=== PATIENT | male | born 1985 | race Caucasian/White ===

== ENCOUNTER 2016-11-04 15:44 | Inpatient (IN) | payer OTHER ==
[2016-11-04 17:20] VITALS: BMI 24.0
--- NOTE | 2016-11-04 18:48 | HP ---
Admission [facility] - [facility] Chief Complaint: i want to go to rehab Allergies/Adverse Reactions: Allergies Allergy/AdvReac Type Severity Reaction Status Date / Time Penicillins Allergy Severe Hives Verified 11/04/16 17:30 History of Present Illness: 30 years old male with long history of cocaine nicotine dependence, heart murmur , athma and depression is admitted to rehab cardiology [phone] Exam Limitations: No Limitations - Ebola screening Have you traveled outside of the country in the last 21 days: No Have you had contact with anyone from an Ebola affected area: No Have you been sick,other than usual withdrawal symptoms: No Do you have a fever: No - Review of Systems Constitutional: Weight Stable EENT: reports: Dental Problems (upper teeth missing) Respiratory: reports: No Symptoms reported Cardiac: reports: No Symptoms Reported GI: reports: No Symptoms Reported : reports: No Symptoms Reported Musculoskeletal: reports: No Symptoms Reported Integumentary: reports: No Symptoms Reported Neuro: reports: No Symptoms reported Endocrine: reports: No Symptoms Reported Hematology: reports: No Symptoms Reported Psychiatric: reports: Judgement Intact, Orientated x3, Depressed Other Systems: Reviewed and Negative Patient History - Patient Medical History Hx Anemia: No Hx Asthma: Yes Hx Chronic Obstructive Pulmonary Disease (COPD): No Hx Cancer: No Hx Cardiac Disorders: No Hx Congestive Heart Failure: No Hx Hypertension: No Hx Hypercholesterolemia: No Hx Pacemaker: No HX Cerebrovascular Accident: No Hx Seizures: No Hx Dementia: No Hx Diabetes: No Hx Gastrointestinal Disorders: No Hx Liver Disease: No Hx Genitourinary Disorders: No Hx Sexually Transmitted Disorders: No Hx Thyroid Disease: No Hx Human Immunodeficiency Virus (HIV): No Hx Hepatitis C: No Hx Depression: Yes Hx Suicide Attempt: No Hx Bipolar Disorder: No Hx Schizophrenia: No - Patient Surgical History Past Surgical History: No - PPD History Previous Implant?: Yes Documented Results: Negative w/o proof Implanted On Prior [facility] Admission?: No PPD to be Administered?: Yes - Smoking Cessation Smoking history: Current every day smoker Have you smoked in the past 12 months: Yes Aproximately how many cigarettes per day: 20 Cigars Per Day: 0 Hx Chewing Tobacco Use: No Initiated information on smoking cessation: Yes 'Breaking Loose' booklet given: 11/04/16 - Substance & Tx. History Hx Alcohol Use: No Hx Substance Use: Yes Substance Use Type: Cocaine Hx Substance Use Treatment: Yes (2014 [facility]) - Substances Abused Cocaine Route: Inhalation Frequency: Daily Amount used: 2-3 grams Age of first use: 19 Date of Last Use: 11/01/16 Family Disease History - Family Disease History Family Disease History: Heart Disease: Mother (), Other: Mother Admission Physical Exam [facility] - Vital Signs Vital Signs: Vital Signs - 24 hr 11/04/16 17:15 Temperature 96.9 F L Pulse Rate 75 Respiratory 18 Rate Blood Pressure 100/60 - Physical General Appearance: Yes: No Apparent Distress, Appropriately Dressed, Thin HEENTM: Yes: Hearing grossly Normal, Normal ENT Inspection, Normocephalic, Normal Voice Respiratory: Yes: Chest Non-Tender, Lungs Clear, Normal Breath Sounds, No Respiratory Distress, No Accessory Muscle Use Neck: Yes: Supple, Trachea in good position Breast: Yes: Breasts Symetrical Cardiology: Yes: Regular Rhythm, Regular Rate, S1, S2, Murmur Abdominal: Yes: Normal Bowel Sounds, Non Tender, Soft Genitourinary: Yes: Within Normal Limits Extremities: Yes: Normal Inspection, Normal Range of Motion, Non-Tender Neurological: Yes: Fully Oriented, Alert, Motor Strength 5/5, Normal Response, Depressed Affect Integumentary: Yes: Warm Lymphatic: Yes: Within Normal Limits - Diagnostic (1) Cocaine dependence, uncomplicated Current Visit: Yes Status: Acute (2) Nicotine dependence Current Visit: Yes Status: Acute Qualifiers: Nicotine product type: cigarettes Substance use status: in withdrawal Qualified Code(s): F17.213 - Nicotine dependence, cigarettes, with withdrawal (3) Asthma Current Visit: Yes Status: Chronic Qualifiers: Asthma severity: mild intermittent Asthma complication type: with status asthmaticus Qualified Code(s): J45.22 - Mild intermittent asthma with status asthmaticus (4) Murmur, cardiac Current Visit: Yes Status: Chronic (5) Depression (emotion) Current Visit: Yes Status: Suspected Qualifiers: Depression Type: dysthymia Qualified Code(s): F34.1 - Dysthymic disorder Cleared for Admission [facility] - Detox or Rehab [facility] Level of Care: Observation Bed Detox Regimen/Protocol: Not Applicable Claeared for Rehab Admission: Yes [facility] Breath Alcohol Content Breath Alcohol Content: 0 Urine Drug Screen - Results Drug Screen Negative: No Urine Drug Screen Results: KENYETTA-Cocaine, MTD-Methadone
[2016-11-04] MEDS ORDERED: MAG HYDROX/AL HYDROX/SIMETH 30 ML UNIT-DOSE CUP PO PRN (18:53)
[2016-11-04] MEDS ORDERED: MAGNESIUM CITRATE 300 ML BOTTLE PO PRN (18:53)
[2016-11-04] MEDS ORDERED: IBUPROFEN 400 MG TABLET (FP) PO PRN (18:53)
[2016-11-04] MEDS ORDERED: diphenhydrAMINE HCL 50 MG CAPSULE PO PRN (18:53)
[2016-11-04] MEDS ORDERED: LOPERAMIDE HCL 2 MG CAPSULE PO PRN (18:53)
[2016-11-04] MEDS ORDERED: P-EPHED 60MG/TRIPROLIDI 2.5MG TABLET PO PRN (18:53)
[2016-11-04] MEDS ORDERED: MENTHOL/PHENOL 1 EACH UD MM PRN (18:53)
[2016-11-04] MEDS ORDERED: MAGNESIUM HYDROX 2400MG/30ML ORAL SUSPENSION 30 ML CUP PO PRN (18:53)
[2016-11-04] MEDS ORDERED: ACETAMINOPHEN 325 MG TABLET (FP) PO PRN (18:53)
[2016-11-04] MEDS ORDERED: guaiFENesin/D-METHORPHAN HB 10 ML UNIT-DOSE CUPS PO PRN (18:53)
[2016-11-04] MEDS ORDERED: ALBUTEROL SO4 6.7 GM HFA INHALER IH PRN (18:56)
[2016-11-04] MEDS ORDERED: METHADONE HCL 40 MG DISPERSABLE TABLET PO SCH (19:00)
[2016-11-04] MEDS ORDERED: TUBERCULIN PPD 5 TU/0.1ML VIAL ID ONE ×2 (22:45→22:57)
[2016-11-04] MEDS: THIAMINE HCL 100 MG TABLET (FP) PO SCH (23:04)
[2016-11-05 00:38] LABS: URINE APPEARANCE CLEAR; URINE BILIRUBIN NEGATIVE (NEGATIVE); URINE BLOOD NEGATIVE (NEGATIVE); URINE COLOR YELLOW; URINE GLUCOSE (UA) NEGATIVE (NEGATIVE); URINE KETONE NEGATIVE (NEGATIVE); URINE LEUK ESTERASE TRACE (NEGATIVE); URINE NITRITE NEGATIVE (NEGATIVE); URINE PROTEIN NEGATIVE (NEGATIVE); URINE UROBILINOGEN NEGATIVE mg/dL (0.2-1.0)
[2016-11-05 01:00] LABS: URINE MUCUS RARE; URINE WBC <1 /hpf (3-5)
[2016-11-05] MEDS ORDERED: METHADONE HCL 10 MG TABLET ONE (04:07)
[2016-11-05] MEDS ORDERED: METHADONE HCL 40 MG DISPERSABLE TABLET ONE (04:08)
[2016-11-05] MEDS: METHADONE 120 MG, METHADONE 10 MG PO SCH (06:20)
--- NOTE | 2016-11-05 09:18 | EKG ---
Test Reason : Blood Pressure : / mmHG Vent. Rate : 065 BPM Atrial Rate : 065 BPM P-R Int : 130 ms QRS Dur : 102 ms QT Int : 400 ms P-R-T Axes : 018 066 045 degrees QTc Int : 416 ms NORMAL SINUS RHYTHM NON-SPECIFIC INTRA-VENTRICULAR CONDUCTION DELAY NO PREVIOUS ECGS AVAILABLE Confirmed by AUDREY PEDERSON MD ([id number]) on 11/05/2016 9:18:08 AM Referred By: Confirmed By:AUDREY PEDERSON MD
[2016-11-05] MEDS: PRENATAL VITAMINS W/ FOLIC ACID TABLET (FP) PO SCH (09:56)
[2016-11-05] MEDS: NICOTINE POLACRILEX 4 MG GUM BC PRN ×2 (09:58→13:18)
[2016-11-05] MEDS: NICOTINE 21 MG/24 HOURS TOPICAL PATCH TD SCH (09:58)
--- NOTE | 2016-11-05 10:15 | HP ---
Psychiatrist Admission - Data Date of interview: 11/05/16 Admission source: [facility] Identifying data: This is the first 5N inpatient rehabilitation admission for this 30 year old single father of 3 (10,9,8), he is unemployed and domiciled , residing in [facility] with his aunt. Medical History: medical h/o heart murmur, on MMTP 130 mg/daily. Smokes cigarettes 1/2 PPD. Psychiatric History: Patient reports history of depression, first psychiatric hospitalization in 2014 at [facility] for 2 weeks, states he was withdrawing from drugs, reports 2 subseguient hospitalization in 2015 and most recent in for medication adjustment. Reports he sees at his MMTP and on Seroquel 300 mg po hs and Paxil 10 mg po daily. Patient is drowsy during evaluation and falling asleep during interview. Physical/Sexual Abuse/Trauma History: Denies Vital Signs: Vital Signs - 24 hr 11/04/16 11/04/16 11/05/16 17:15 21:23 03:30 Temperature 96.9 F L 98.7 F Pulse Rate 75 71 Respiratory 18 18 16 Rate Blood Pressure 100/60 115/67 11/05/16 06:58 Temperature 98.2 F Pulse Rate 60 Respiratory 16 Rate Blood Pressure 105/64 Allergies/Adverse Reactions: Allergies Allergy/AdvReac Type Severity Reaction Status Date / Time Penicillins Allergy Severe Hives Verified 11/04/16 17:30 Date of last physical exam: 11/04/16 Concur with the findings of this exam: Yes - Substance Abuse/Tx History Hx Alcohol Use: No Hx Substance Use: Yes Substance Use Type: Cocaine (daily use, snifs and smoks), Heroin (4-5 bags daily ) Hx Substance Use Treatment: Yes - Admission Criteria Previous failed treatment: Yes Poor recovery environment: Yes Comorbidities: Yes Lacks judgement: Yes Mental Status Exam - Mental Status Exam Alert and Oriented to: Time, Place, Person Cognitive Function: Grossly Intact Patient Appearance: Well Groomed Mood: Withdrawn (sedated) Affect: Blunted Patient Behavior: Cooperative Speech Pattern: Clear Voice Loudness: Normal Thought Process: Goal Oriented Thought Disorder: Not Present Hallucinations: Denies Suicidal Ideation: Denies Homicidal Ideation: Denies Insight/Judgement: Fair Sleep: Fair Appetite: Fair Muscle strength/Tone: Normal Gait/Station: Normal Psychiatric Findings - Problem List ([place] 1, 2,3) (1) Nicotine dependence Current Visit: Yes Status: Acute Qualifiers: Nicotine product type: cigarettes Substance use status: in withdrawal Qualified Code(s): F17.213 - Nicotine dependence, cigarettes, with withdrawal (2) Opioid dependence Current Visit: Yes Status: Acute (3) Cocaine dependence Current Visit: Yes Status: Acute (4) MDD (major depressive disorder), recurrent episode Current Visit: Yes Status: Acute - Initial Treatment Plan Initial Treatment Plan: Will continue Paxil 10 mg po daily, Seroquel 100 mg po hs, monitor progress as needed.
[2016-11-05 14:25] LABS: MCH 27.8 pg (25.7-33.7); MCHC 33.5 g/dl (32.0-35.9); MEAN PLT VOLUME 9.1 fl (7.5-11.1); PLATELET COUNT 145 K/MM3 (134-434); RDW 13.4 % (11.9-15.9); WHITE BLOOD COUNT 7.4 K/mm3 (4.0-10.0)
[2016-11-05 14:40] LABS: ALBUMIN 4.1 g/dl (3.4-5.0); ALK PHOS 93 U/L (45-117); ANION GAP 4 (8-16); BILIRUBIN,TOTAL 0.3 mg/dL (0.2-1.0); CALCIUM 9.5 mg/dL (8.5-10.1); CO2 32 mmol/L (21-32); CREATININE 0.7 mg/dL (0.7-1.3); GLUCOSE,RANDOM 83 mg/dL (74-106); SGOT/AST 14 U/L (15-37); SGPT/ALT 27 U/L (12-78); TOT PROT 6.9 g/dl (6.4-8.2)
[2016-11-05] MEDS: THIAMINE HCL 100 MG TABLET (FP) PO SCH (21:15)
[2016-11-05] MEDS: QUEtiapine FUMARATE 100 MG TABLET (FP) PO SCH (21:15)
[2016-11-06] MEDS ORDERED: METHADONE HCL 10 MG TABLET ONE (05:22)
[2016-11-06] MEDS ORDERED: METHADONE HCL 40 MG DISPERSABLE TABLET ONE (05:23)
[2016-11-06] MEDS: METHADONE 120 MG, METHADONE 10 MG PO SCH (06:58)
[2016-11-06] MEDS: NICOTINE 21 MG/24 HOURS TOPICAL PATCH TD SCH (09:54)
[2016-11-06] MEDS: PARoxetine HCL 10 MG TABLET (FP) PO SCH (09:54)
[2016-11-06] MEDS: PRENATAL VITAMINS W/ FOLIC ACID TABLET (FP) PO SCH (09:54)
[2016-11-06] MEDS: QUEtiapine FUMARATE 100 MG TABLET (FP) PO SCH (21:16)
[2016-11-06] MEDS: THIAMINE HCL 100 MG TABLET (FP) PO SCH (21:16)
[2016-11-07] MEDS ORDERED: METHADONE HCL 40 MG DISPERSABLE TABLET ONE (03:23)
[2016-11-07] MEDS ORDERED: METHADONE HCL 10 MG TABLET ONE (03:23)
[2016-11-07] MEDS: METHADONE 120 MG, METHADONE 10 MG PO SCH (06:30)
[2016-11-07] MEDS: PRENATAL VITAMINS W/ FOLIC ACID TABLET (FP) PO SCH (09:58)
[2016-11-07] MEDS: NICOTINE 21 MG/24 HOURS TOPICAL PATCH TD SCH (09:58)
[2016-11-07] MEDS: PARoxetine HCL 10 MG TABLET (FP) PO SCH (09:58)
[2016-11-07] MEDS: QUEtiapine FUMARATE 100 MG TABLET (FP) PO SCH (21:12)
[2016-11-07] MEDS: THIAMINE HCL 100 MG TABLET (FP) PO SCH (21:12)
[2016-11-08] MEDS ORDERED: METHADONE HCL 40 MG DISPERSABLE TABLET ONE (03:26)
[2016-11-08] MEDS ORDERED: METHADONE HCL 10 MG TABLET ONE (03:26)
[2016-11-08] MEDS: METHADONE 120 MG, METHADONE 10 MG PO SCH (06:49)
[2016-11-08] MEDS: PARoxetine HCL 10 MG TABLET (FP) PO SCH (09:53)
[2016-11-08] MEDS: PRENATAL VITAMINS W/ FOLIC ACID TABLET (FP) PO SCH (09:53)
[2016-11-08] MEDS: NICOTINE 21 MG/24 HOURS TOPICAL PATCH TD SCH (09:53)
[2016-11-08] MEDS: THIAMINE HCL 100 MG TABLET (FP) PO SCH (21:15)
[2016-11-08] MEDS: QUEtiapine FUMARATE 100 MG TABLET (FP) PO SCH (21:15)
[2016-11-09] MEDS ORDERED: METHADONE HCL 10 MG TABLET ONE (03:52)
[2016-11-09] MEDS ORDERED: METHADONE HCL 40 MG DISPERSABLE TABLET ONE (03:53)
[2016-11-09] MEDS: METHADONE 120 MG, METHADONE 10 MG PO SCH (06:21)
[2016-11-09] MEDS: PARoxetine HCL 10 MG TABLET (FP) PO SCH (10:07)
[2016-11-09] MEDS: NICOTINE 21 MG/24 HOURS TOPICAL PATCH TD SCH (10:07)
[2016-11-09] MEDS: PRENATAL VITAMINS W/ FOLIC ACID TABLET (FP) PO SCH (10:07)
[2016-11-09] MEDS: THIAMINE HCL 100 MG TABLET (FP) PO SCH (21:19)
[2016-11-09] MEDS: QUEtiapine FUMARATE 100 MG TABLET (FP) PO SCH (21:19)
[2016-11-10] MEDS ORDERED: METHADONE HCL 10 MG TABLET ONE (05:51)
[2016-11-10] MEDS ORDERED: METHADONE HCL 40 MG DISPERSABLE TABLET ONE (05:52)
[2016-11-10] MEDS: METHADONE 120 MG, METHADONE 10 MG PO SCH (06:21)
[2016-11-10] MEDS: NICOTINE 21 MG/24 HOURS TOPICAL PATCH TD SCH (10:06)
[2016-11-10] MEDS: PARoxetine HCL 10 MG TABLET (FP) PO SCH (10:06)
[2016-11-10] MEDS: PRENATAL VITAMINS W/ FOLIC ACID TABLET (FP) PO SCH (10:06)
[2016-11-10] MEDS: THIAMINE HCL 100 MG TABLET (FP) PO SCH (21:17)
[2016-11-10] MEDS: QUEtiapine FUMARATE 100 MG TABLET (FP) PO SCH (21:17)
[2016-11-10] MEDS: NICOTINE POLACRILEX 4 MG GUM BC PRN (21:18)
[2016-11-11] MEDS ORDERED: METHADONE HCL 10 MG TABLET ONE (05:05)
[2016-11-11] MEDS ORDERED: METHADONE HCL 40 MG DISPERSABLE TABLET ONE (05:05)
[2016-11-11] MEDS: METHADONE 120 MG, METHADONE 10 MG PO SCH (06:32)
[2016-11-11] MEDS: PARoxetine HCL 10 MG TABLET (FP) PO SCH (10:05)
[2016-11-11] MEDS: PRENATAL VITAMINS W/ FOLIC ACID TABLET (FP) PO SCH (10:05)
[2016-11-11] MEDS: NICOTINE 21 MG/24 HOURS TOPICAL PATCH TD SCH (10:06)
--- NOTE | 2016-11-11 12:12 | PN ---
Psychiatric Progress Note Vital Signs: Vital Signs Period Temp Pulse Resp BP Sys/Correia Pulse Ox Last 24 Hr 98.0 F 72 18-18 96/69 Date of Session: 11/11/16 Chief Complaint:: "sedation" HPI: Patient is addressing opioid, cocaine, nicotine dependence comorbid MDD. ROS: WNL Current Medications: Active Medications Generic Name Dose Route Start Last Admin Trade Name Freq PRN Reason Stop Dose Admin Acetaminophen 650 mg 11/04/16 18:53 Tylenol - PO Q4H PRN PAIN Al Hydroxide/Mg Hydroxide 30 ml 11/04/16 18:53 Mylanta Oral Suspension - PO Q6H PRN DYSPEPSIA Albuterol Sulfate 2 puff 11/04/16 18:56 Ventolin Hfa Inhaler - IH Q4H PRN SHORT OF BREATH/WHEEZING Diphenhydramine HCl 50 mg 11/04/16 18:53 Benadryl - PO HSMR1 PRN INSOMNIA Eucalyptus/Menthol/Phenol/Sorbitol 1 each 11/04/16 18:53 Cepastat Lozenge - MM Q4H PRN SORE THROAT Guaifenesin 10 ml 11/04/16 18:53 Robitussin Dm - PO Q6H PRN COUGH Ibuprofen 400 mg 11/04/16 18:53 Motrin - PO Q6H PRN SEVERE PAIN Loperamide HCl 4 mg 11/04/16 18:53 Imodium - PO Q6H PRN DIARRHEA Magnesium Citrate 300 ml 11/04/16 18:53 Citroma - PO Q48H PRN CONSTIPATION Magnesium Hydroxide 30 ml 11/04/16 18:53 Milk Of Magnesia - PO DAILY PRN CONSTIPATION Methadone HCl 120 mg/ 130 mg 11/05/16 06:00 11/11/16 06:32 Methadone HCl 10 mg PO 130 mg DAILY@0600 LIZZ Administration Nicotine 21 mg 11/05/16 10:00 11/11/16 10:06 Nicoderm Patch - TD 21 mg DAILY LIZZ Administration Nicotine Polacrilex 4 mg 11/04/16 18:53 11/10/16 21:18 Nicorette Gum - BC 4 mg Q2H PRN Administration NICOTINE REPLACEMENT RX Paroxetine HCl 10 mg 11/06/16 10:00 11/11/16 10:05 Paxil - PO 10 mg DAILY LIZZ Administration Multivit/Folic Acid/Iron 1 tab 11/05/16 10:00 11/11/16 10:05 Vitamins ([facility]) - PO 1 tab DAILY LIZZ Administration Pseudoephedrine/Triprolidine 1 combo 11/04/16 18:53 Actifed - PO TID PRN NASAL CONGESTION Quetiapine Fumarate 50 mg 11/11/16 12:04 Seroquel - PO HS LIZZ Thiamine HCl 100 mg 11/04/16 22:00 11/10/16 21:17 Vitamin B1 - PO 100 mg HS LIZZ Administration Current Side Effect: Yes (sedation) Lab tests ordered: No Lab tests reviewed: Yes Provider note:: Patient was observed being sedated, falling into the sleep in the groups, he is on MMTP 130 mg, reviewed medications with the patient , will decrease Seroquel 50 mg po hs, continue to monitor progress. Total face to face time:: 15 Mental Status Exam - Mental Status Exam Alert and Oriented to: Time, Place, Person Cognitive Function: Fair Patient Appearance: Unkempt Mood: Anxious Affect: Appropriate, Mood Congruent Patient Behavior: Cooperative Speech Pattern: Appropriate Voice Loudness: Normal Thought Disorder: Not Present Hallucinations: Denies Suicidal Ideation: Denies Homicidal Ideation: Denies Insight/Judgement: Fair Sleep: Fair Appetite: Good Muscle strength/Tone: Normal Gait/Station: Normal Psychiatric Treatment Plan - Problem List (1) Nicotine dependence Current Visit: Yes Qualifiers: Nicotine product type: cigarettes Substance use status: in withdrawal Qualified Code(s): F17.213 - Nicotine dependence, cigarettes, with withdrawal (2) Opioid dependence Current Visit: Yes (3) Cocaine dependence Current Visit: Yes (4) MDD (major depressive disorder), recurrent episode Current Visit: Yes
[2016-11-11] MEDS: THIAMINE HCL 100 MG TABLET (FP) PO SCH (21:15)
[2016-11-11] MEDS ORDERED: QUEtiapine FUMARATE 100 MG TABLET (FP) PO SCH (22:00)
[2016-11-11] MEDS: QUEtiapine FUMARATE 50 MG TABLET PO SCH (22:17)
[2016-11-12] MEDS ORDERED: METHADONE HCL 10 MG TABLET ONE (02:35)
[2016-11-12] MEDS ORDERED: METHADONE HCL 40 MG DISPERSABLE TABLET ONE (02:36)
[2016-11-12] MEDS: METHADONE 120 MG, METHADONE 10 MG PO SCH (06:24)
[2016-11-12] MEDS: PARoxetine HCL 10 MG TABLET (FP) PO SCH (09:50)
[2016-11-12] MEDS: NICOTINE 21 MG/24 HOURS TOPICAL PATCH TD SCH (09:50)
[2016-11-12] MEDS: PRENATAL VITAMINS W/ FOLIC ACID TABLET (FP) PO SCH (09:50)
[2016-11-12] MEDS: THIAMINE HCL 100 MG TABLET (FP) PO SCH (21:15)
[2016-11-12] MEDS: QUEtiapine FUMARATE 50 MG TABLET PO SCH (21:15)
[2016-11-13] MEDS ORDERED: METHADONE 120 MG, METHADONE 10 MG PO SCH (09:00)
[2016-11-13] MEDS ORDERED: METHADONE HCL 10 MG TABLET ONE (09:10)
[2016-11-13] MEDS ORDERED: METHADONE HCL 40 MG DISPERSABLE TABLET ONE (09:11)
[2016-11-13] MEDS: METHADONE 120 MG, METHADONE 10 MG PO SCH (09:53)
[2016-11-13] MEDS: PARoxetine HCL 10 MG TABLET (FP) PO SCH (09:55)
[2016-11-13] MEDS: PRENATAL VITAMINS W/ FOLIC ACID TABLET (FP) PO SCH (09:55)
[2016-11-13] MEDS: NICOTINE 21 MG/24 HOURS TOPICAL PATCH TD SCH (09:55)
[2016-11-13] MEDS: THIAMINE HCL 100 MG TABLET (FP) PO SCH (21:18)
[2016-11-13] MEDS: QUEtiapine FUMARATE 50 MG TABLET PO SCH (21:18)
[2016-11-14] MEDS ORDERED: METHADONE HCL 10 MG TABLET ONE (08:24)
[2016-11-14] MEDS ORDERED: METHADONE HCL 40 MG DISPERSABLE TABLET ONE (08:25)
[2016-11-14] MEDS: METHADONE 120 MG, METHADONE 10 MG PO SCH (09:47)
[2016-11-14] MEDS: PARoxetine HCL 10 MG TABLET (FP) PO SCH (09:48)
[2016-11-14] MEDS: PRENATAL VITAMINS W/ FOLIC ACID TABLET (FP) PO SCH (09:48)
[2016-11-14] MEDS: NICOTINE 21 MG/24 HOURS TOPICAL PATCH TD SCH (09:49)
[2016-11-14] MEDS: QUEtiapine FUMARATE 50 MG TABLET PO SCH (21:18)
[2016-11-14] MEDS: THIAMINE HCL 100 MG TABLET (FP) PO SCH (21:18)
[2016-11-15] MEDS ORDERED: METHADONE HCL 10 MG TABLET ONE (08:50)
[2016-11-15] MEDS ORDERED: METHADONE HCL 40 MG DISPERSABLE TABLET ONE (08:51)
[2016-11-15] MEDS: PRENATAL VITAMINS W/ FOLIC ACID TABLET (FP) PO SCH (10:12)
[2016-11-15] MEDS: NICOTINE 21 MG/24 HOURS TOPICAL PATCH TD SCH (10:12)
[2016-11-15] MEDS: METHADONE 120 MG, METHADONE 10 MG PO SCH (10:12)
[2016-11-15] MEDS: PARoxetine HCL 10 MG TABLET (FP) PO SCH (10:13)
[2016-11-15] MEDS: THIAMINE HCL 100 MG TABLET (FP) PO SCH (21:24)
[2016-11-15] MEDS: QUEtiapine FUMARATE 50 MG TABLET PO SCH (21:24)
[2016-11-16] MEDS ORDERED: METHADONE HCL 10 MG TABLET ONE (08:55)
[2016-11-16] MEDS ORDERED: METHADONE HCL 40 MG DISPERSABLE TABLET ONE (08:56)
[2016-11-16] MEDS: METHADONE 120 MG, METHADONE 10 MG PO SCH (09:54)
[2016-11-16] MEDS: PARoxetine HCL 10 MG TABLET (FP) PO SCH (09:55)
[2016-11-16] MEDS: PRENATAL VITAMINS W/ FOLIC ACID TABLET (FP) PO SCH (09:55)
[2016-11-16] MEDS: NICOTINE 21 MG/24 HOURS TOPICAL PATCH TD SCH (09:56)
[2016-11-16] MEDS ORDERED: SENNOSIDES 8.6MG TABLET (FP) PO ONE (15:23)
[2016-11-16] MEDS ORDERED: ONDANSETRON *ODT* 4 MG TABLET SL ONE (15:23)
[2016-11-16] MEDS ORDERED: ONDANSETRON *ODT* 4 MG TABLET SL PRN (15:23)
[2016-11-16] MEDS ORDERED: DOCUSATE SODIUM 100 MG CAPSULE (FP) PO ONE (15:23)
[2016-11-16] MEDS: QUEtiapine FUMARATE 50 MG TABLET PO SCH (21:17)
[2016-11-16] MEDS: THIAMINE HCL 100 MG TABLET (FP) PO SCH (21:17)
[2016-11-16] MEDS: SENNOSIDES 8.6MG TABLET (FP) PO SCH (21:18)
[2016-11-16] MEDS: DOCUSATE SODIUM 100 MG CAPSULE (FP) PO SCH (21:18)
[2016-11-17] MEDS: METHADONE HCL 40 MG DISPERSABLE TABLET PO SCH (09:59)
[2016-11-17] MEDS: PRENATAL VITAMINS W/ FOLIC ACID TABLET (FP) PO SCH (10:00)
[2016-11-17] MEDS: NICOTINE 21 MG/24 HOURS TOPICAL PATCH TD SCH (10:00)
[2016-11-17] MEDS: PARoxetine HCL 10 MG TABLET (FP) PO SCH (10:00)
[2016-11-17] MEDS: QUEtiapine FUMARATE 50 MG TABLET PO SCH (21:18)
[2016-11-17] MEDS: THIAMINE HCL 100 MG TABLET (FP) PO SCH (21:18)
[2016-11-17] MEDS: SENNOSIDES 8.6MG TABLET (FP) PO SCH (21:19)
[2016-11-17] MEDS: DOCUSATE SODIUM 100 MG CAPSULE (FP) PO SCH (21:19)
[2016-11-18] MEDS: METHADONE HCL 40 MG DISPERSABLE TABLET PO SCH (10:20)
[2016-11-18] MEDS: PARoxetine HCL 10 MG TABLET (FP) PO SCH (10:21)
[2016-11-18] MEDS: PRENATAL VITAMINS W/ FOLIC ACID TABLET (FP) PO SCH (10:21)
[2016-11-18] MEDS: NICOTINE 21 MG/24 HOURS TOPICAL PATCH TD SCH (10:22)
[2016-11-18] MEDS: DOCUSATE SODIUM 100 MG CAPSULE (FP) PO SCH (21:33)
[2016-11-18] MEDS: QUEtiapine FUMARATE 50 MG TABLET PO SCH (21:34)
[2016-11-18] MEDS: SENNOSIDES 8.6MG TABLET (FP) PO SCH (21:34)
[2016-11-18] MEDS: THIAMINE HCL 100 MG TABLET (FP) PO SCH (21:34)
[2016-11-19] MEDS: PRENATAL VITAMINS W/ FOLIC ACID TABLET (FP) PO SCH (09:47)
[2016-11-19] MEDS: PARoxetine HCL 10 MG TABLET (FP) PO SCH (09:47)
[2016-11-19] MEDS: METHADONE HCL 40 MG DISPERSABLE TABLET PO SCH (09:47)
[2016-11-19] MEDS: NICOTINE 21 MG/24 HOURS TOPICAL PATCH TD SCH (09:48)
[2016-11-19] MEDS: THIAMINE HCL 100 MG TABLET (FP) PO SCH (21:49)
[2016-11-19] MEDS: DOCUSATE SODIUM 100 MG CAPSULE (FP) PO SCH (21:49)
[2016-11-19] MEDS: QUEtiapine FUMARATE 50 MG TABLET PO SCH (21:49)
[2016-11-19] MEDS: SENNOSIDES 8.6MG TABLET (FP) PO SCH (21:49)
[2016-11-20] MEDS: METHADONE HCL 40 MG DISPERSABLE TABLET PO SCH (10:31)
[2016-11-20] MEDS: PRENATAL VITAMINS W/ FOLIC ACID TABLET (FP) PO SCH (10:32)
[2016-11-20] MEDS: NICOTINE 21 MG/24 HOURS TOPICAL PATCH TD SCH (10:32)
[2016-11-20] MEDS: PARoxetine HCL 10 MG TABLET (FP) PO SCH (10:32)
[2016-11-20] MEDS: QUEtiapine FUMARATE 50 MG TABLET PO SCH (22:06)
[2016-11-20] MEDS: DOCUSATE SODIUM 100 MG CAPSULE (FP) PO SCH (22:06)
[2016-11-20] MEDS: THIAMINE HCL 100 MG TABLET (FP) PO SCH (22:06)
[2016-11-20] MEDS: SENNOSIDES 8.6MG TABLET (FP) PO SCH (22:06)
[2016-11-21] MEDS: NICOTINE 21 MG/24 HOURS TOPICAL PATCH TD SCH (11:10)
[2016-11-21] MEDS: METHADONE HCL 40 MG DISPERSABLE TABLET PO SCH (11:10)
[2016-11-21] MEDS: PRENATAL VITAMINS W/ FOLIC ACID TABLET (FP) PO SCH (11:12)
[2016-11-21] MEDS: PARoxetine HCL 10 MG TABLET (FP) PO SCH (11:12)
[2016-11-21] MEDS: SENNOSIDES 8.6MG TABLET (FP) PO SCH (21:52)
[2016-11-21] MEDS: DOCUSATE SODIUM 100 MG CAPSULE (FP) PO SCH (21:53)
[2016-11-21] MEDS: QUEtiapine FUMARATE 50 MG TABLET PO SCH (21:53)
[2016-11-21] MEDS: THIAMINE HCL 100 MG TABLET (FP) PO SCH (21:53)
[2016-11-22] MEDS: METHADONE HCL 40 MG DISPERSABLE TABLET PO SCH (10:47)
[2016-11-22] MEDS: PARoxetine HCL 10 MG TABLET (FP) PO SCH (10:47)
[2016-11-22] MEDS: PRENATAL VITAMINS W/ FOLIC ACID TABLET (FP) PO SCH (10:47)
[2016-11-22] MEDS: NICOTINE 21 MG/24 HOURS TOPICAL PATCH TD SCH (10:48)
[2016-11-22] MEDS: SENNOSIDES 8.6MG TABLET (FP) PO SCH (21:55)
[2016-11-22] MEDS: QUEtiapine FUMARATE 50 MG TABLET PO SCH (21:56)
[2016-11-22] MEDS: DOCUSATE SODIUM 100 MG CAPSULE (FP) PO SCH (21:56)
[2016-11-22] MEDS: THIAMINE HCL 100 MG TABLET (FP) PO SCH (21:56)
[2016-11-22] MEDS: NICOTINE POLACRILEX 4 MG GUM BC PRN (21:56)
[2016-11-23] MEDS ORDERED: METHADONE HCL 10 MG TABLET PO SCH ×2 (06:00→11:14)
[2016-11-23] MEDS: PRENATAL VITAMINS W/ FOLIC ACID TABLET (FP) PO SCH (10:29)
[2016-11-23] MEDS: NICOTINE 21 MG/24 HOURS TOPICAL PATCH TD SCH (10:29)
[2016-11-23] MEDS: PARoxetine HCL 10 MG TABLET (FP) PO SCH (10:29)
[2016-11-23] MEDS ORDERED: METHADONE HCL 10 MG TABLET ONE (11:45)
[2016-11-23] MEDS ORDERED: METHADONE HCL 40 MG DISPERSABLE TABLET ONE (11:46)
[2016-11-23] MEDS: METHADONE 80 MG, METHADONE 30 MG PO SCH (11:49)
[2016-11-23] MEDS: SENNOSIDES 8.6MG TABLET (FP) PO SCH (21:51)
[2016-11-23] MEDS: DOCUSATE SODIUM 100 MG CAPSULE (FP) PO SCH (21:51)
[2016-11-23] MEDS: QUEtiapine FUMARATE 50 MG TABLET PO SCH (21:52)
[2016-11-23] MEDS: THIAMINE HCL 100 MG TABLET (FP) PO SCH (21:52)
[2016-11-24 06:59] VITALS: BP 103/39; PULSE 56; TEMP 97.9
[2016-11-24] MEDS ORDERED: METHADONE HCL 10 MG TABLET ONE (09:17)
[2016-11-24] MEDS ORDERED: METHADONE HCL 40 MG DISPERSABLE TABLET ONE (09:18)
[2016-11-24] MEDS: METHADONE 80 MG, METHADONE 30 MG PO SCH (10:53)
[2016-11-24] MEDS: PRENATAL VITAMINS W/ FOLIC ACID TABLET (FP) PO SCH (10:55)
[2016-11-24] MEDS: PARoxetine HCL 10 MG TABLET (FP) PO SCH (10:55)
[2016-11-24] MEDS: NICOTINE 21 MG/24 HOURS TOPICAL PATCH TD SCH (10:56)
--- NOTE | 2016-11-24 12:55 | PN ---
Psychiatric Progress Note Vital Signs: Vital Signs Period Temp Pulse Resp BP Sys/Correia Pulse Ox Last 24 Hr 97.9 F 56 16-16 103/39 Date of Session: 11/24/16 Chief Complaint:: discharge visit HPI: Patient addressing opioid, cocaine, nicotine dependence comorbid MDD. ROS: WNL Current Medications: Active Medications Generic Name Dose Route Start Last Admin Trade Name Freq PRN Reason Stop Dose Admin Acetaminophen 650 mg 11/04/16 18:53 Tylenol - PO Q4H PRN PAIN Al Hydroxide/Mg Hydroxide 30 ml 11/04/16 18:53 11/16/16 12:54 Mylanta Oral Suspension - PO 30 ml Q6H PRN Administration DYSPEPSIA Albuterol Sulfate 2 puff 11/04/16 18:56 Ventolin Hfa Inhaler - IH Q4H PRN SHORT OF BREATH/WHEEZING Diphenhydramine HCl 50 mg 11/04/16 18:53 Benadryl - PO HSMR1 PRN INSOMNIA Docusate Sodium 300 mg 11/16/16 22:00 11/23/16 21:51 Colace - PO 300 mg HS LIZZ Administration Eucalyptus/Menthol/Phenol/Sorbitol 1 each 11/04/16 18:53 Cepastat Lozenge - MM Q4H PRN SORE THROAT Guaifenesin 10 ml 11/04/16 18:53 Robitussin Dm - PO Q6H PRN COUGH Ibuprofen 400 mg 11/04/16 18:53 Motrin - PO Q6H PRN SEVERE PAIN Loperamide HCl 4 mg 11/04/16 18:53 Imodium - PO Q6H PRN DIARRHEA Magnesium Citrate 300 ml 11/04/16 18:53 Citroma - PO Q48H PRN CONSTIPATION Magnesium Hydroxide 30 ml 11/04/16 18:53 Milk Of Magnesia - PO DAILY PRN CONSTIPATION Methadone HCl 80 mg/ Methadone 110 mg 11/23/16 11:25 11/24/16 10:53 HCl 30 mg PO 11/30/16 11:24 110 mg DAILY@1000 LIZZ Administration Nicotine 21 mg 11/05/16 10:00 11/24/16 10:56 Nicoderm Patch - TD 21 mg DAILY LIZZ Administration Nicotine Polacrilex 4 mg 11/04/16 18:53 11/22/16 21:56 Nicorette Gum - BC 4 mg Q2H PRN Administration NICOTINE REPLACEMENT RX Ondansetron HCl 8 mg 11/16/16 15:23 Zofran Odt - SL Q8H PRN NAUSEA AND/OR VOMITING Paroxetine HCl 10 mg 11/06/16 10:00 11/24/16 10:55 Paxil - PO 10 mg DAILY LIZZ Administration Multivit/Folic Acid/Iron 1 tab 11/05/16 10:00 11/24/16 10:55 Vitamins ([facility]) - PO 1 tab DAILY LIZZ Administration Pseudoephedrine/Triprolidine 1 combo 11/04/16 18:53 Actifed - PO TID PRN NASAL CONGESTION Quetiapine Fumarate 50 mg 11/11/16 21:30 11/23/16 21:52 Seroquel - PO 50 mg HS LIZZ Administration Senna 2 tab 11/16/16 22:00 11/23/16 21:51 Senna - PO 2 tab HS LIZZ Administration Thiamine HCl 100 mg 11/04/16 22:00 11/23/16 21:52 Vitamin B1 - PO 100 mg HS LIZZ Administration Current Side Effect: No Lab tests ordered: No Lab tests reviewed: Yes Provider note:: Patient has completed today his treatment and met his identified goals, will continue to address his issues at [facility] [employer] dred[employer] [facility]. He gained insights into his addiction , motivated to utilize all supports available to prevent relapses. Medications Seroquel and Paxil well tlerated, scripts provided, paatient was encouraged to continue maintain abstinence. Stable for discharge. Total face to face time:: 20 Mental Status Exam - Mental Status Exam Alert and Oriented to: Time, Place, Person Cognitive Function: Fair Patient Appearance: Well Groomed Mood: Hopeful Affect: Appropriate, Mood Congruent Patient Behavior: Appropriate, Cooperative Speech Pattern: Clear, Appropriate Voice Loudness: Normal Thought Process: Goal Oriented Thought Disorder: Not Present Hallucinations: Denies Suicidal Ideation: Denies Homicidal Ideation: Denies Insight/Judgement: Fair Sleep: Fair Appetite: Fair Muscle strength/Tone: Normal Gait/Station: Normal Psychiatric Treatment Plan - Problem List (1) Nicotine dependence Current Visit: Yes Qualifiers: Nicotine product type: cigarettes Substance use status: in withdrawal Qualified Code(s): F17.213 - Nicotine dependence, cigarettes, with withdrawal (2) Opioid dependence Current Visit: Yes (3) Cocaine dependence Current Visit: Yes (4) MDD (major depressive disorder), recurrent episode Current Visit: Yes
== END 2016-11-24 13:00 | disposition home or self-care (01) | DRG 772 ==
LOC: YASAS 15:44 → Y5N 19:31
PROVIDERS: ADMIT Psychiatry & Neurology Psychiatry; ATTEND Psychiatry & Neurology Psychiatry
PROC: HZ42ZZZ Group Counseling for Substance Abuse Treatment, Cognitive-Behavioral (ICD-10-PCS; principal; 2016-11-04)
DX: F11.20 Opioid dependence, uncomplicated (principal); F14.20 Cocaine dependence, uncomplicated; F17.213 Nicotine dependence, cigarettes, with withdrawal; F33.9 Major depressive disorder, recurrent, unspecified; F34.1 Dysthymic disorder; J45.22 Mild intermittent asthma with status asthmaticus
CPT/HCPCS: 36415; 80053; 81003; 81015; 85027; 86593; 93005; 93010

== ENCOUNTER 2022-02-24 15:15 | Inpatient (IN) | payer OTHER ==
[2022-02-24 17:24] VITALS: BMI 27.3
[2022-02-24] MEDS ORDERED: BENZOCAINE/MENTHOL (CHLORASEPTIC ) LOZENGE MM PRN (19:03)
[2022-02-24] MEDS ORDERED: IBUPROFEN 400 MG TABLET (FP) PO PRN (19:03)
[2022-02-24] MEDS ORDERED: MAG HYDROX/AL HYDROX/SIMETH 30 ML UNIT-DOSE CUP PO PRN (19:03)
[2022-02-24] MEDS ORDERED: guaiFENesin 200 MG/10 ML 10 ML UNIT-DOSE CUPS PO PRN (19:03)
[2022-02-24] MEDS ORDERED: POLYETHYLENE GLYCOL (HEALTHYLAX) 3350 17 GM PACKET PO PRN (19:03)
[2022-02-24] MEDS ORDERED: ACETAMINOPHEN 325 MG TABLET (FP) PO PRN (19:03)
[2022-02-24] MEDS ORDERED: P-EPHED 60MG/TRIPROLIDI 2.5MG TABLET PO PRN (19:03)
[2022-02-24] MEDS ORDERED: NICOTINE POLACRILEX 2 MG GUM BC PRN (19:03)
[2022-02-24] MEDS ORDERED: LOPERAMIDE HCL 2 MG CAPSULE PO PRN (19:03)
[2022-02-25] MEDS: THIAMINE HCL 100 MG TABLET (FP) PO SCH ×2 (01:40→21:34)
[2022-02-25] MEDS ORDERED: methaDONE HCL 10 MG TABLET PO ONE (10:18)
[2022-02-25] MEDS: PRENATAL VITAMINS W/ FOLIC ACID TABLET (FP) PO SCH (10:53)
[2022-02-25 11:30] LABS: HEMATOCRIT 34.7 % (35.4-49); HEMOGLOBIN 11.9 GM/dL (11.7-16.9); MCH 28.5 pg (25.7-33.7); MCHC 34.2 g/dl (32.0-35.9); MEAN CELL VOLUME 83.5 fl (80-96); MEAN PLT VOLUME 8.8 fl (7.5-11.1); PLATELET COUNT 183 10^3/uL (134-434); RBC 4.16 M/mm3 (4.00-5.60); RDW 13.2 % (11.9-15.9); WHITE BLOOD COUNT 5.5 K/mm3 (4.0-10.0)
[2022-02-25 12:01] LABS: ALBUMIN 3.5 g/dl (3.4-5.0); BLOOD UREA NITROGEN 17.8 mg/dL (7-18); CALCIUM 9.9 mg/dL (8.5-10.1)
[2022-02-25 12:04] LABS: CREATININE 0.6 mg/dL (0.55-1.3)
[2022-02-25 12:05] LABS: TOT PROT 6.2 g/dl (6.4-8.2)
[2022-02-25 12:06] LABS: BILIRUBIN,TOTAL 0.5 mg/dL (0.2-1)
[2022-02-25 12:32] LABS: SYPHILIS W/ RPR CONF NON-REACTIVE (NONREACTIVE)
[2022-02-25] MEDS ORDERED: TUBERCULIN PPD 5 TU/0.1ML VIAL ID ONE (12:59)
[2022-02-25] MEDS: MIRTAZAPINE 15 MG TABLET (FP) PO SCH (21:34)
[2022-02-26] MEDS ORDERED: methaDONE HCL 10 MG TABLET PO SCH (06:00)
[2022-02-26] MEDS: PRENATAL VITAMINS W/ FOLIC ACID TABLET (FP) PO SCH (09:42)
[2022-02-26] MEDS: VENLAFAXINE HCL 150 MG E.R. CAPSULE PO SCH (09:42)
[2022-02-26] MEDS: THIAMINE HCL 100 MG TABLET (FP) PO SCH (21:08)
[2022-02-26] MEDS: MELATONIN 5 MG TABLETS PO PRN (21:08)
[2022-02-26] MEDS: MIRTAZAPINE 15 MG TABLET (FP) PO SCH (21:08)
[2022-02-27] MEDS: VENLAFAXINE HCL 150 MG E.R. CAPSULE PO SCH (09:51)
[2022-02-27] MEDS: PRENATAL VITAMINS W/ FOLIC ACID TABLET (FP) PO SCH (09:51)
[2022-02-27 10:16] LABS: URINE APPEARANCE CLEAR; URINE BILIRUBIN NEGATIVE (NEGATIVE); URINE COLOR YELLOW; URINE GLUCOSE (UA) NEGATIVE (NEGATIVE); URINE KETONE NEGATIVE (NEGATIVE); URINE LEUK ESTERASE NEGATIVE (NEGATIVE); URINE NITRITE NEGATIVE (NEGATIVE); URINE PROTEIN NEGATIVE (NEGATIVE); URINE UROBILINOGEN 0.2 mg/dL (0.2-1.0)
[2022-02-27] MEDS: MIRTAZAPINE 15 MG TABLET (FP) PO SCH (21:36)
[2022-02-27] MEDS: THIAMINE HCL 100 MG TABLET (FP) PO SCH (21:36)
[2022-02-28] MEDS: PRENATAL VITAMINS W/ FOLIC ACID TABLET (FP) PO SCH (09:56)
[2022-02-28] MEDS: VENLAFAXINE HCL 150 MG E.R. CAPSULE PO SCH (09:56)
[2022-02-28] MEDS: NICOTINE 10 MG CARTRIDGE (INHALER) IH PRN (13:44)
[2022-02-28] MEDS: MIRTAZAPINE 15 MG TABLET (FP) PO SCH (21:56)
[2022-02-28] MEDS: THIAMINE HCL 100 MG TABLET (FP) PO SCH (21:56)
[2022-02-28] MEDS: MELATONIN 5 MG TABLETS PO PRN (21:56)
[2022-03-01] MEDS: VENLAFAXINE HCL 150 MG E.R. CAPSULE PO SCH (09:46)
[2022-03-01] MEDS: PRENATAL VITAMINS W/ FOLIC ACID TABLET (FP) PO SCH (09:47)
[2022-03-01] MEDS: THIAMINE HCL 100 MG TABLET (FP) PO SCH (21:07)
[2022-03-01] MEDS: MELATONIN 5 MG TABLETS PO PRN (21:07)
[2022-03-01] MEDS: MIRTAZAPINE 15 MG TABLET (FP) PO SCH (21:07)
[2022-03-02] MEDS: PRENATAL VITAMINS W/ FOLIC ACID TABLET (FP) PO SCH (09:32)
[2022-03-02] MEDS: VENLAFAXINE HCL 150 MG E.R. CAPSULE PO SCH (09:32)
[2022-03-02] MEDS: NICOTINE 10 MG CARTRIDGE (INHALER) IH PRN (12:57)
[2022-03-02] MEDS: MIRTAZAPINE 15 MG TABLET (FP) PO SCH (21:07)
[2022-03-02] MEDS: MELATONIN 5 MG TABLETS PO PRN (21:08)
[2022-03-02] MEDS: THIAMINE HCL 100 MG TABLET (FP) PO SCH (21:08)
[2022-03-03] MEDS: VENLAFAXINE HCL 150 MG E.R. CAPSULE PO SCH (09:32)
[2022-03-03] MEDS: PRENATAL VITAMINS W/ FOLIC ACID TABLET (FP) PO SCH (09:32)
[2022-03-03] MEDS: MIRTAZAPINE 15 MG TABLET (FP) PO SCH (21:12)
[2022-03-03] MEDS: MELATONIN 5 MG TABLETS PO PRN (21:12)
[2022-03-03] MEDS: THIAMINE HCL 100 MG TABLET (FP) PO SCH (21:12)
[2022-03-04] MEDS: PRENATAL VITAMINS W/ FOLIC ACID TABLET (FP) PO SCH (09:43)
[2022-03-04] MEDS: VENLAFAXINE HCL 150 MG E.R. CAPSULE PO SCH (09:43)
[2022-03-04] MEDS: THIAMINE HCL 100 MG TABLET (FP) PO SCH (21:22)
[2022-03-04] MEDS: MIRTAZAPINE 15 MG TABLET (FP) PO SCH (21:22)
[2022-03-04] MEDS: MELATONIN 5 MG TABLETS PO PRN (21:22)
[2022-03-05] MEDS: VENLAFAXINE HCL 150 MG E.R. CAPSULE PO SCH (09:35)
[2022-03-05] MEDS: PRENATAL VITAMINS W/ FOLIC ACID TABLET (FP) PO SCH (09:35)
[2022-03-05] MEDS: NICOTINE 10 MG CARTRIDGE (INHALER) IH PRN (18:47)
[2022-03-05] MEDS: MELATONIN 5 MG TABLETS PO PRN (21:12)
[2022-03-05] MEDS: MIRTAZAPINE 15 MG TABLET (FP) PO SCH (21:12)
[2022-03-05] MEDS: THIAMINE HCL 100 MG TABLET (FP) PO SCH (21:12)
[2022-03-06] MEDS: VENLAFAXINE HCL 150 MG E.R. CAPSULE PO SCH (09:50)
[2022-03-06] MEDS: PRENATAL VITAMINS W/ FOLIC ACID TABLET (FP) PO SCH (09:50)
[2022-03-06] MEDS: THIAMINE HCL 100 MG TABLET (FP) PO SCH (21:47)
[2022-03-06] MEDS: MIRTAZAPINE 15 MG TABLET (FP) PO SCH (21:47)
[2022-03-06] MEDS: NICOTINE 10 MG CARTRIDGE (INHALER) IH PRN (21:50)
[2022-03-07] MEDS: PRENATAL VITAMINS W/ FOLIC ACID TABLET (FP) PO SCH (09:54)
[2022-03-07] MEDS: VENLAFAXINE HCL 150 MG E.R. CAPSULE PO SCH (09:54)
[2022-03-07] MEDS: MAGNESIUM HYDROX 2400MG/30ML ORAL SUSPENSION 30 ML CUP PO PRN (12:44)
[2022-03-07] MEDS: MIRTAZAPINE 15 MG TABLET (FP) PO SCH (21:25)
[2022-03-07] MEDS: THIAMINE HCL 100 MG TABLET (FP) PO SCH (21:25)
[2022-03-07] MEDS: MELATONIN 5 MG TABLETS PO PRN (21:25)
[2022-03-08] MEDS: VENLAFAXINE HCL 150 MG E.R. CAPSULE PO SCH (09:52)
[2022-03-08] MEDS: PRENATAL VITAMINS W/ FOLIC ACID TABLET (FP) PO SCH (09:52)
[2022-03-08] MEDS: NICOTINE 10 MG CARTRIDGE (INHALER) IH PRN (11:06)
[2022-03-08] MEDS: MELATONIN 5 MG TABLETS PO PRN (21:29)
[2022-03-08] MEDS: THIAMINE HCL 100 MG TABLET (FP) PO SCH (21:29)
[2022-03-08] MEDS: MIRTAZAPINE 15 MG TABLET (FP) PO SCH (21:29)
[2022-03-09] MEDS: NICOTINE 10 MG CARTRIDGE (INHALER) IH PRN (09:47)
[2022-03-09] MEDS: PRENATAL VITAMINS W/ FOLIC ACID TABLET (FP) PO SCH (09:47)
[2022-03-09] MEDS: VENLAFAXINE HCL 150 MG E.R. CAPSULE PO SCH (09:47)
[2022-03-09] MEDS: MAGNESIUM HYDROX 2400MG/30ML ORAL SUSPENSION 30 ML CUP PO PRN (15:12)
[2022-03-09] MEDS: MELATONIN 5 MG TABLETS PO PRN (21:10)
[2022-03-09] MEDS: MIRTAZAPINE 15 MG TABLET (FP) PO SCH (21:10)
[2022-03-09] MEDS: THIAMINE HCL 100 MG TABLET (FP) PO SCH (21:11)
[2022-03-10] MEDS: VENLAFAXINE HCL 150 MG E.R. CAPSULE PO SCH (09:48)
[2022-03-10] MEDS: PRENATAL VITAMINS W/ FOLIC ACID TABLET (FP) PO SCH (09:48)
[2022-03-10] MEDS: NICOTINE 10 MG CARTRIDGE (INHALER) IH PRN (09:48)
[2022-03-10] MEDS: MIRTAZAPINE 15 MG TABLET (FP) PO SCH (21:35)
[2022-03-10] MEDS: THIAMINE HCL 100 MG TABLET (FP) PO SCH (21:35)
[2022-03-11] MEDS: PRENATAL VITAMINS W/ FOLIC ACID TABLET (FP) PO SCH (09:58)
[2022-03-11] MEDS: VENLAFAXINE HCL 150 MG E.R. CAPSULE PO SCH (10:00)
[2022-03-11] MEDS: MIRTAZAPINE 15 MG TABLET (FP) PO SCH (21:19)
[2022-03-11] MEDS: THIAMINE HCL 100 MG TABLET (FP) PO SCH (21:19)
[2022-03-11] MEDS: MELATONIN 5 MG TABLETS PO PRN (21:19)
[2022-03-12] MEDS ORDERED: methaDONE HCL 10 MG TABLET PO SCH (06:00)
[2022-03-12] MEDS: NICOTINE 10 MG CARTRIDGE (INHALER) IH PRN (09:47)
[2022-03-12] MEDS: PRENATAL VITAMINS W/ FOLIC ACID TABLET (FP) PO SCH (09:47)
[2022-03-12] MEDS: VENLAFAXINE HCL 150 MG E.R. CAPSULE PO SCH (10:05)
[2022-03-12] MEDS: BACITRACIN 0.9 GM PACKET TP SCH ×2 (12:47→21:14)
[2022-03-12] MEDS: MELATONIN 5 MG TABLETS PO PRN (21:13)
[2022-03-12] MEDS: MIRTAZAPINE 15 MG TABLET (FP) PO SCH (21:13)
[2022-03-12] MEDS: THIAMINE HCL 100 MG TABLET (FP) PO SCH (21:13)
[2022-03-13] MEDS: VENLAFAXINE HCL 150 MG E.R. CAPSULE PO SCH (09:36)
[2022-03-13] MEDS: PRENATAL VITAMINS W/ FOLIC ACID TABLET (FP) PO SCH (09:36)
[2022-03-13] MEDS: BACITRACIN 0.9 GM PACKET TP SCH ×2 (09:36→21:21)
[2022-03-13] MEDS: NICOTINE 10 MG CARTRIDGE (INHALER) IH PRN (13:09)
[2022-03-13] MEDS: THIAMINE HCL 100 MG TABLET (FP) PO SCH (21:20)
[2022-03-13] MEDS: MIRTAZAPINE 15 MG TABLET (FP) PO SCH (21:20)
[2022-03-14] MEDS: PRENATAL VITAMINS W/ FOLIC ACID TABLET (FP) PO SCH (09:28)
[2022-03-14] MEDS: BACITRACIN 0.9 GM PACKET TP SCH ×2 (09:29→21:15)
[2022-03-14] MEDS: VENLAFAXINE HCL 150 MG E.R. CAPSULE PO SCH (09:29)
[2022-03-14] MEDS: MIRTAZAPINE 15 MG TABLET (FP) PO SCH (21:14)
[2022-03-14] MEDS: THIAMINE HCL 100 MG TABLET (FP) PO SCH (21:15)
[2022-03-14] MEDS: MELATONIN 5 MG TABLETS PO PRN (21:15)
[2022-03-15] MEDS: VENLAFAXINE HCL 150 MG E.R. CAPSULE PO SCH (09:34)
[2022-03-15] MEDS: BACITRACIN 0.9 GM PACKET TP SCH ×2 (09:34→21:14)
[2022-03-15] MEDS: PRENATAL VITAMINS W/ FOLIC ACID TABLET (FP) PO SCH (09:34)
[2022-03-15] MEDS ORDERED: ONDANSETRON *ODT* 4 MG TABLET SL PRN (11:38)
[2022-03-15] MEDS: THIAMINE HCL 100 MG TABLET (FP) PO SCH (21:14)
[2022-03-15] MEDS: MIRTAZAPINE 15 MG TABLET (FP) PO SCH (21:15)
[2022-03-15] MEDS: MELATONIN 5 MG TABLETS PO PRN (21:15)
[2022-03-16] MEDS: VENLAFAXINE HCL 150 MG E.R. CAPSULE PO SCH (09:52)
[2022-03-16] MEDS: BACITRACIN 0.9 GM PACKET TP SCH ×2 (09:52→21:16)
[2022-03-16] MEDS: PRENATAL VITAMINS W/ FOLIC ACID TABLET (FP) PO SCH (09:52)
[2022-03-16] MEDS: MIRTAZAPINE 15 MG TABLET (FP) PO SCH (21:16)
[2022-03-16] MEDS: MELATONIN 5 MG TABLETS PO PRN (21:17)
[2022-03-16] MEDS: THIAMINE HCL 100 MG TABLET (FP) PO SCH (21:17)
[2022-03-17] MEDS: BACITRACIN 0.9 GM PACKET TP SCH ×2 (10:38→21:15)
[2022-03-17] MEDS: PRENATAL VITAMINS W/ FOLIC ACID TABLET (FP) PO SCH (10:38)
[2022-03-17] MEDS: VENLAFAXINE HCL 150 MG E.R. CAPSULE PO SCH (10:38)
[2022-03-17] MEDS: MIRTAZAPINE 15 MG TABLET (FP) PO SCH (21:14)
[2022-03-17] MEDS: MELATONIN 5 MG TABLETS PO PRN (21:14)
[2022-03-17] MEDS: THIAMINE HCL 100 MG TABLET (FP) PO SCH (21:15)
[2022-03-18] MEDS: BACITRACIN 0.9 GM PACKET TP SCH ×2 (09:30→21:15)
[2022-03-18] MEDS: PRENATAL VITAMINS W/ FOLIC ACID TABLET (FP) PO SCH (09:31)
[2022-03-18] MEDS: VENLAFAXINE HCL 150 MG E.R. CAPSULE PO SCH (09:31)
[2022-03-18] MEDS: NICOTINE 10 MG CARTRIDGE (INHALER) IH PRN (17:00)
[2022-03-18] MEDS: THIAMINE HCL 100 MG TABLET (FP) PO SCH (21:15)
[2022-03-18] MEDS: MIRTAZAPINE 15 MG TABLET (FP) PO SCH (21:15)
[2022-03-19] MEDS: BACITRACIN 0.9 GM PACKET TP SCH ×2 (09:55→21:18)
[2022-03-19] MEDS: VENLAFAXINE HCL 150 MG E.R. CAPSULE PO SCH (09:55)
[2022-03-19] MEDS: PRENATAL VITAMINS W/ FOLIC ACID TABLET (FP) PO SCH (09:55)
[2022-03-19] MEDS: THIAMINE HCL 100 MG TABLET (FP) PO SCH (21:17)
[2022-03-19] MEDS: MELATONIN 5 MG TABLETS PO PRN (21:17)
[2022-03-19] MEDS: MIRTAZAPINE 15 MG TABLET (FP) PO SCH (21:18)
[2022-03-20] MEDS: VENLAFAXINE HCL 150 MG E.R. CAPSULE PO SCH (09:18)
[2022-03-20] MEDS: PRENATAL VITAMINS W/ FOLIC ACID TABLET (FP) PO SCH (09:18)
[2022-03-20] MEDS: BACITRACIN 0.9 GM PACKET TP SCH ×2 (09:18→21:10)
[2022-03-20] MEDS: THIAMINE HCL 100 MG TABLET (FP) PO SCH (21:10)
[2022-03-20] MEDS: MIRTAZAPINE 15 MG TABLET (FP) PO SCH (21:10)
[2022-03-21] MEDS: PRENATAL VITAMINS W/ FOLIC ACID TABLET (FP) PO SCH (09:08)
[2022-03-21] MEDS: VENLAFAXINE HCL 150 MG E.R. CAPSULE PO SCH (09:08)
[2022-03-21] MEDS: BACITRACIN 0.9 GM PACKET TP SCH ×2 (09:08→21:15)
[2022-03-21] MEDS: MIRTAZAPINE 15 MG TABLET (FP) PO SCH (21:15)
[2022-03-21] MEDS: THIAMINE HCL 100 MG TABLET (FP) PO SCH (21:16)
[2022-03-22] MEDS: BACITRACIN 0.9 GM PACKET TP SCH ×2 (09:09→21:38)
[2022-03-22] MEDS: PRENATAL VITAMINS W/ FOLIC ACID TABLET (FP) PO SCH (09:09)
[2022-03-22] MEDS: VENLAFAXINE HCL 150 MG E.R. CAPSULE PO SCH (09:09)
[2022-03-22] MEDS: MELATONIN 5 MG TABLETS PO PRN (21:38)
[2022-03-22] MEDS: MIRTAZAPINE 15 MG TABLET (FP) PO SCH (21:38)
[2022-03-22] MEDS: THIAMINE HCL 100 MG TABLET (FP) PO SCH (21:38)
[2022-03-23 07:37] VITALS: RESP 18
[2022-03-23] MEDS: VENLAFAXINE HCL 150 MG E.R. CAPSULE PO SCH (09:37)
[2022-03-23] MEDS: BACITRACIN 0.9 GM PACKET TP SCH ×2 (09:37→21:08)
[2022-03-23] MEDS: PRENATAL VITAMINS W/ FOLIC ACID TABLET (FP) PO SCH (09:37)
[2022-03-23] MEDS: THIAMINE HCL 100 MG TABLET (FP) PO SCH (21:08)
[2022-03-23] MEDS: MELATONIN 5 MG TABLETS PO PRN (21:08)
[2022-03-23] MEDS: MIRTAZAPINE 15 MG TABLET (FP) PO SCH (21:08)
[2022-03-24 07:05] VITALS: BP 100/66; PULSE 85; TEMP 97.6
[2022-03-24] MEDS: PRENATAL VITAMINS W/ FOLIC ACID TABLET (FP) PO SCH (09:36)
[2022-03-24] MEDS: VENLAFAXINE HCL 150 MG E.R. CAPSULE PO SCH (09:36)
[2022-03-24] MEDS: BACITRACIN 0.9 GM PACKET TP SCH (09:36)
== END 2022-03-24 10:00 | disposition home or self-care (01) | DRG 772 ==
LOC: YASAS 15:15 → UNDOADMIN 18:54 → Y6N 18:54 → Y3E 02-25 10:24 → Y5N 02-26 13:20
PROVIDERS: ADMIT Allergy & Immunology; ATTEND Psychiatry & Neurology Pain Medicine
PROC: HZ42ZZZ Group Counseling for Substance Abuse Treatment, Cognitive-Behavioral (ICD-10-PCS; principal; 2022-02-25)
DX: F11.20 Opioid dependence, uncomplicated (principal); F14.20 Cocaine dependence, uncomplicated; F10.20 Alcohol dependence, uncomplicated; F17.210 Nicotine dependence, cigarettes, uncomplicated; F33.9 Major depressive disorder, recurrent, unspecified; F19.24 Other psychoactive substance dependence with psychoactive substance-induced mood disorder; F42.4 Excoriation (skin-picking) disorder; J45.909 Unspecified asthma, uncomplicated; R11.2 Nausea with vomiting, unspecified; R73.03 Prediabetes; Z20.822 Contact with and (suspected) exposure to COVID-19; Z56.0 Unemployment, unspecified; Z59.00 Homelessness unspecified
CPT/HCPCS: 36415; 80053; 81003; 82140; 82962; 85027; 86780; 86803; C9803-CS; Q0162; U0003; U0005

== ENCOUNTER 2022-12-26 17:47 | Inpatient (IN) | payer OTHER ==
[2022-12-26 18:21] VITALS: BMI 21.2
[2022-12-26] MEDS ORDERED: IBUPROFEN 600 MG TABLET (FP) PO PRN (21:34)
[2022-12-26] MEDS ORDERED: NALOXONE HCL 0.4 MG/ML VIAL IM PRN (21:34)
[2022-12-26] MEDS ORDERED: BENZOCAINE/MENTHOL (CHLORASEPTIC ) LOZENGE MM PRN (21:34)
[2022-12-26] MEDS ORDERED: hydrOXYzine PAMOATE 25 MG CAPSULE (FP) PO PRN (21:34)
[2022-12-26] MEDS ORDERED: ACETAMINOPHEN 325 MG TABLET (FP) PO PRN (21:34)
[2022-12-26] MEDS ORDERED: LOPERAMIDE HCL 2 MG CAPSULE PO PRN (21:34)
[2022-12-26] MEDS ORDERED: MAG HYDROX/AL HYDROX/SIMETH 30 ML UNIT-DOSE CUP PO PRN (21:34)
[2022-12-26] MEDS ORDERED: IBUPROFEN 400 MG TABLET (FP) PO PRN (21:34)
[2022-12-26] MEDS ORDERED: MAGNESIUM HYDROX 2400MG/30ML ORAL SUSPENSION 30 ML CUP PO PRN (21:34)
[2022-12-26] MEDS ORDERED: NALOXONE HCL (KLOXXADO) 8 MG SPRAY NS PRN (21:34)
[2022-12-26] MEDS ORDERED: COLLOIDAL OATMEAL 1 BAR EACH TP PRN (21:34)
[2022-12-26] MEDS ORDERED: POLYETHYLENE GLYCOL (HEALTHYLAX) 3350 17 GM PACKET PO PRN (21:34)
[2022-12-26] MEDS ORDERED: BENZONATATE 200 MG CAPSULE PO PRN (21:34)
[2022-12-26] MEDS ORDERED: guaiFENesin 600 MG TABLET.ER (FP) PO PRN (21:34)
[2022-12-26] MEDS ORDERED: ACETAMINOPHEN 325 MG TABLET (FP) ONE (21:49)
[2022-12-26] MEDS: THIAMINE HCL 100 MG TABLET (FP) PO SCH (22:30)
[2022-12-26] MEDS: MELATONIN 5 MG TABLETS PO SCH (22:30)
[2022-12-27 05:07] LABS: URINE APPEARANCE CLEAR; URINE BILIRUBIN NEGATIVE (NEGATIVE); URINE COLOR YELLOW; URINE GLUCOSE (UA) NEGATIVE (NEGATIVE); URINE KETONE NEGATIVE (NEGATIVE); URINE LEUK ESTERASE NEGATIVE (NEGATIVE); URINE NITRITE NEGATIVE (NEGATIVE); URINE PROTEIN NEGATIVE (NEGATIVE)
[2022-12-27] MEDS ORDERED: methaDONE HCL 10 MG TABLET PO SCH (09:00)
[2022-12-27] MEDS: PRENATAL VITAMINS W/ FOLIC ACID TABLET (FP) PO SCH (10:33)
[2022-12-27 11:33] LABS: HEMATOCRIT 37.3 % (35.4-49); HEMOGLOBIN 12.4 GM/dL (11.7-16.9); MCH 27.4 pg (25.7-33.7); MCHC 33.4 g/dl (32.0-35.9); MEAN CELL VOLUME 82.2 fl (80-96); MEAN PLT VOLUME 8.7 fl (7.5-11.1); PLATELET COUNT 161 10^3/uL (134-434); RBC 4.53 M/mm3 (4.00-5.60); RDW 13.3 % (11.9-15.9); WHITE BLOOD COUNT 11.1 K/mm3 (4.0-10.0)
[2022-12-27 11:38] LABS: CHLORIDE 103 mmol/L (98-107); POTASSIUM 3.6 mmol/L (3.5-5.1); SODIUM 138 mmol/L (136-145)
[2022-12-27 11:47] LABS: CALCIUM 9.6 mg/dL (8.5-10.1)
[2022-12-27 11:48] LABS: ANION GAP 6 mmol/L (4-13); BLOOD UREA NITROGEN 7.7 mg/dL (7-18); CO2 30 mmol/L (21-32); GLUCOSE,RANDOM 102 mg/dL (74-106)
[2022-12-27 11:51] LABS: CREATININE 0.6 mg/dL (0.55-1.3); SGOT/AST 24 U/L (15-37); SGPT/ALT 27 U/L (13-61)
[2022-12-27 11:54] LABS: ALK PHOS 103 U/L (45-117); BILIRUBIN,TOTAL 0.5 mg/dL (0.2-1); TOT PROT 7.2 g/dl (6.4-8.2)
[2022-12-27] MEDS ORDERED: TUBERCULIN PPD 5 TU/0.1ML SYRINGE (IN PATIENT USE ONLY) ID ONE (12:00)
[2022-12-27] MEDS: VENLAFAXINE HCL 75 MG E.R. CAPSULES PO SCH (13:14)
[2022-12-27] MEDS: MIRTAZAPINE 30 MG TABLET PO SCH (21:33)
[2022-12-27] MEDS: THIAMINE HCL 100 MG TABLET (FP) PO SCH (21:34)
[2022-12-27] MEDS: MELATONIN 5 MG TABLETS PO SCH (22:07)
[2022-12-28] MEDS: PRENATAL VITAMINS W/ FOLIC ACID TABLET (FP) PO SCH (10:00)
[2022-12-28] MEDS: VENLAFAXINE HCL 75 MG E.R. CAPSULES PO SCH (10:01)
[2022-12-28] MEDS: THIAMINE HCL 100 MG TABLET (FP) PO SCH (21:05)
[2022-12-28] MEDS: MELATONIN 5 MG TABLETS PO SCH (21:05)
[2022-12-28] MEDS: MIRTAZAPINE 30 MG TABLET PO SCH (21:05)
[2022-12-29] MEDS: VENLAFAXINE HCL 75 MG E.R. CAPSULES PO SCH (10:34)
[2022-12-29] MEDS: PRENATAL VITAMINS W/ FOLIC ACID TABLET (FP) PO SCH (10:34)
[2022-12-29] MEDS: MIRTAZAPINE 30 MG TABLET PO SCH (21:17)
[2022-12-29] MEDS: THIAMINE HCL 100 MG TABLET (FP) PO SCH (21:17)
[2022-12-29] MEDS: MELATONIN 5 MG TABLETS PO SCH (21:17)
[2022-12-30] MEDS: VENLAFAXINE HCL 75 MG E.R. CAPSULES PO SCH (10:13)
[2022-12-30] MEDS: PRENATAL VITAMINS W/ FOLIC ACID TABLET (FP) PO SCH (10:13)
[2022-12-30] MEDS: MELATONIN 5 MG TABLETS PO SCH (21:05)
[2022-12-30] MEDS: MIRTAZAPINE 30 MG TABLET PO SCH (21:05)
[2022-12-30] MEDS: THIAMINE HCL 100 MG TABLET (FP) PO SCH (21:05)
[2022-12-31 07:18] VITALS: BP 102/63; PULSE 90; RESP 16; TEMP 97.1
[2022-12-31] MEDS: PRENATAL VITAMINS W/ FOLIC ACID TABLET (FP) PO SCH (10:26)
[2022-12-31] MEDS: VENLAFAXINE HCL 75 MG E.R. CAPSULES PO SCH (10:26)
== END 2022-12-31 11:13 | disposition home or self-care (01) | DRG 772 ==
LOC: SUATTDRO → YASAS 17:47 → Y3W 21:45
PROVIDERS: ADMIT Allergy & Immunology; ATTEND Psychiatry & Neurology Pain Medicine
PROC: HZ42ZZZ Group Counseling for Substance Abuse Treatment, Cognitive-Behavioral (ICD-10-PCS; principal; 2022-12-26)
DX: F11.20 Opioid dependence, uncomplicated (principal); F14.20 Cocaine dependence, uncomplicated; F12.20 Cannabis dependence, uncomplicated; F17.210 Nicotine dependence, cigarettes, uncomplicated; F33.9 Major depressive disorder, recurrent, unspecified; J45.909 Unspecified asthma, uncomplicated; Z88.0 Allergy status to penicillin
CPT/HCPCS: 36415; 80053; 80307; 81003; 85027; 86780; 87635; 93005; 93010

== ENCOUNTER 2023-03-28 14:41 | Inpatient (IN) | payer OTHER ==
[2023-03-28 15:39] VITALS: BMI 21.6
[2023-03-28] MEDS ORDERED: MAG HYDROX/AL HYDROX/SIMETH 30 ML UNIT-DOSE CUP PO PRN (19:44)
[2023-03-28] MEDS ORDERED: BENZONATATE 200 MG CAPSULE PO PRN (19:44)
[2023-03-28] MEDS ORDERED: NALOXONE HCL (KLOXXADO) 8 MG SPRAY NS PRN (19:44)
[2023-03-28] MEDS ORDERED: NALOXONE HCL 0.4 MG/ML VIAL IM PRN (19:44)
[2023-03-28] MEDS ORDERED: POLYETHYLENE GLYCOL (HEALTHYLAX) 3350 17 GM PACKET PO PRN (19:44)
[2023-03-28] MEDS ORDERED: guaiFENesin 600 MG TABLET.ER (FP) PO PRN (19:44)
[2023-03-28] MEDS ORDERED: IBUPROFEN 600 MG TABLET (FP) PO PRN (19:44)
[2023-03-28] MEDS ORDERED: LOPERAMIDE HCL 2 MG CAPSULE PO PRN (19:44)
[2023-03-28] MEDS ORDERED: ACETAMINOPHEN 325 MG TABLET (FP) PO PRN (19:44)
[2023-03-28] MEDS ORDERED: BENZOCAINE/MENTHOL (CHLORASEPTIC ) LOZENGE MM PRN (19:44)
[2023-03-28] MEDS ORDERED: IBUPROFEN 400 MG TABLET (FP) PO PRN (19:44)
[2023-03-28] MEDS ORDERED: NICOTINE POLACRILEX 2 MG GUM BUC PRN (19:44)
[2023-03-28] MEDS ORDERED: MAGNESIUM HYDROX 2400MG/30ML ORAL SUSPENSION 30 ML CUP PO PRN (19:44)
[2023-03-28] MEDS ORDERED: TUBERCULIN PPD 5 TU/0.1ML VIAL ID ONE (22:34)
[2023-03-28] MEDS: THIAMINE HCL 100 MG TABLET (FP) PO SCH (22:52)
[2023-03-28] MEDS: MELATONIN 5 MG TABLETS PO SCH (22:52)
[2023-03-28] MEDS ORDERED: TUBERCULIN PPD 5 TU/0.1ML SYRINGE (IN PATIENT USE ONLY) ID ONE (23:48)
[2023-03-29] MEDS ORDERED: methaDONE HCL 10 MG TABLET PO SCH (08:45)
[2023-03-29 11:38] LABS: URINE APPEARANCE CLEAR; URINE BILIRUBIN NEGATIVE (NEGATIVE); URINE COLOR YELLOW; URINE GLUCOSE (UA) NEGATIVE (NEGATIVE); URINE KETONE NEGATIVE (NEGATIVE); URINE LEUK ESTERASE NEGATIVE (NEGATIVE); URINE NITRITE NEGATIVE (NEGATIVE); URINE PROTEIN NEGATIVE (NEGATIVE)
[2023-03-29 11:44] LABS: HEMATOCRIT 32.2 % (35.4-49); HEMOGLOBIN 10.5 GM/dL (11.7-16.9); MCH 26.5 pg (25.7-33.7); MCHC 32.5 g/dl (32.0-35.9); MEAN CELL VOLUME 81.5 fl (80-96); MEAN PLT VOLUME 8.5 fl (7.5-11.1); PLATELET COUNT 141 10^3/uL (134-434); RBC 3.95 M/mm3 (4.00-5.60); WHITE BLOOD COUNT 5.2 K/mm3 (4.0-10.0)
[2023-03-29 12:24] LABS: ALBUMIN 3.5 g/dl (3.4-5.0); ALK PHOS 98 U/L (45-117); ANION GAP 6 mmol/L (4-13); BILIRUBIN,TOTAL 0.1 mg/dL (0.2-1); BLOOD UREA NITROGEN 11.6 mg/dL (7-18); CALCIUM 9.6 mg/dL (8.5-10.1); CHLORIDE 104 mmol/L (98-107); CO2 29 mmol/L (21-32); CREATININE 0.6 mg/dL (0.55-1.3); GLUCOSE,RANDOM 107 mg/dL (74-106); POTASSIUM 3.9 mmol/L (3.5-5.1); SGOT/AST 11 U/L (15-37); SGPT/ALT 18 U/L (13-61); SODIUM 140 mmol/L (136-145); TOT PROT 6.8 g/dl (6.4-8.2)
[2023-03-29] MEDS: NICOTINE 21 MG/24 HOURS TOPICAL PATCH TD SCH (12:32)
[2023-03-29] MEDS: PRENATAL VITAMINS W/ FOLIC ACID TABLET (FP) PO SCH (12:32)
[2023-03-29] MEDS: THIAMINE HCL 100 MG TABLET (FP) PO SCH (22:09)
[2023-03-29] MEDS: MELATONIN 5 MG TABLETS PO SCH (22:09)
[2023-03-30] MEDS: PRENATAL VITAMINS W/ FOLIC ACID TABLET (FP) PO SCH (09:48)
[2023-03-30] MEDS: NICOTINE 21 MG/24 HOURS TOPICAL PATCH TD SCH (09:48)
[2023-03-30] MEDS: MELATONIN 5 MG TABLETS PO SCH (21:29)
[2023-03-30] MEDS: THIAMINE HCL 100 MG TABLET (FP) PO SCH (21:29)
[2023-03-31] MEDS: NICOTINE 21 MG/24 HOURS TOPICAL PATCH TD SCH (11:17)
[2023-03-31] MEDS: PRENATAL VITAMINS W/ FOLIC ACID TABLET (FP) PO SCH (11:18)
[2023-03-31] MEDS: MIRTAZAPINE 15 MG TABLET (FP) PO SCH (21:54)
[2023-03-31] MEDS: MELATONIN 5 MG TABLETS PO SCH (21:54)
[2023-03-31] MEDS: THIAMINE HCL 100 MG TABLET (FP) PO SCH (21:55)
[2023-04-01] MEDS: NICOTINE 21 MG/24 HOURS TOPICAL PATCH TD SCH (10:02)
[2023-04-01] MEDS: PRENATAL VITAMINS W/ FOLIC ACID TABLET (FP) PO SCH (10:02)
[2023-04-01] MEDS: VENLAFAXINE HCL 150 MG E.R. CAPSULE PO SCH (10:02)
[2023-04-01] MEDS: MIRTAZAPINE 15 MG TABLET (FP) PO SCH (22:03)
[2023-04-01] MEDS: THIAMINE HCL 100 MG TABLET (FP) PO SCH (22:03)
[2023-04-01] MEDS: MELATONIN 5 MG TABLETS PO SCH (22:03)
[2023-04-02] MEDS: PRENATAL VITAMINS W/ FOLIC ACID TABLET (FP) PO SCH (09:46)
[2023-04-02] MEDS: VENLAFAXINE HCL 150 MG E.R. CAPSULE PO SCH (09:46)
[2023-04-02] MEDS: NICOTINE 21 MG/24 HOURS TOPICAL PATCH TD SCH (09:46)
[2023-04-02] MEDS: THIAMINE HCL 100 MG TABLET (FP) PO SCH (21:50)
[2023-04-02] MEDS: MIRTAZAPINE 15 MG TABLET (FP) PO SCH (21:50)
[2023-04-02] MEDS: MELATONIN 5 MG TABLETS PO SCH (21:50)
[2023-04-03 07:22] VITALS: RESP 18; TEMP 97.8
[2023-04-03 09:20] VITALS: BP 100/66; PULSE 73
[2023-04-03] MEDS: VENLAFAXINE HCL 150 MG E.R. CAPSULE PO SCH (10:14)
[2023-04-03] MEDS: PRENATAL VITAMINS W/ FOLIC ACID TABLET (FP) PO SCH (10:14)
[2023-04-03] MEDS: NICOTINE 21 MG/24 HOURS TOPICAL PATCH TD SCH (10:15)
== END 2023-04-03 11:45 | disposition home or self-care (01) | DRG 772 ==
LOC: YASAS 14:41 → Y3W 22:00
PROVIDERS: ADMIT Allergy & Immunology; ATTEND Psychiatry & Neurology Pain Medicine
PROC: HZ42ZZZ Group Counseling for Substance Abuse Treatment, Cognitive-Behavioral (ICD-10-PCS; principal; 2023-03-28)
DX: F11.20 Opioid dependence, uncomplicated (principal); F14.20 Cocaine dependence, uncomplicated; F12.20 Cannabis dependence, uncomplicated; F17.210 Nicotine dependence, cigarettes, uncomplicated; F19.24 Other psychoactive substance dependence with psychoactive substance-induced mood disorder; F41.9 Anxiety disorder, unspecified; F32.A Depression, unspecified; J45.20 Mild intermittent asthma, uncomplicated
CPT/HCPCS: 36415; 80053; 80307; 81003; 85027; 86780; 87635; 87811

== ENCOUNTER 2023-08-20 12:51 | Inpatient (IN) | payer OTHER ==
[2023-08-20 13:26] VITALS: BMI 23.7
[2023-08-20] MEDS ORDERED: ACETAMINOPHEN 325 MG TABLET (FP) PO PRN (16:35)
[2023-08-20] MEDS ORDERED: BISMUTH SUBSALICYLATE 524 MG/30 ML PO PRN (16:35)
[2023-08-20] MEDS ORDERED: LOPERAMIDE HCL 2 MG CAPSULE PO PRN (16:35)
[2023-08-20] MEDS ORDERED: BENZOCAINE/MENTHOL (CHLORASEPTIC ) LOZENGE MM PRN (16:35)
[2023-08-20] MEDS ORDERED: guaiFENesin 600 MG TABLET.ER (FP) PO PRN (16:35)
[2023-08-20] MEDS ORDERED: ONDANSETRON *ODT* 4 MG TABLET SL PRN (16:35)
[2023-08-20] MEDS ORDERED: MAG HYDROX/AL HYDROX/SIMETH 30 ML UNIT-DOSE CUP PO PRN (16:35)
[2023-08-20] MEDS ORDERED: IBUPROFEN 400 MG TABLET (FP) PO PRN (16:35)
[2023-08-20] MEDS ORDERED: LORazepam 1 MG TABLET PO PRN (16:35)
[2023-08-20] MEDS ORDERED: NICOTINE POLACRILEX 2 MG GUM BUC PRN (16:35)
[2023-08-20] MEDS ORDERED: MAGNESIUM HYDROX 2400MG/30ML ORAL SUSPENSION 30 ML CUP PO PRN (16:35)
[2023-08-20] MEDS ORDERED: DICYCLOMINE HCL 10 MG CAPSULE PO PRN (16:35)
[2023-08-20] MEDS ORDERED: POLYETHYLENE GLYCOL (HEALTHYLAX) 3350 17 GM PACKET PO PRN (16:35)
[2023-08-20] MEDS ORDERED: NALOXONE (NARCAN) HCL 4 MG/0.1 ML SPRAY NS PRN (16:35)
[2023-08-20] MEDS ORDERED: BENZONATATE 200 MG CAPSULE PO PRN (16:35)
[2023-08-20] MEDS ORDERED: NALOXONE HCL 0.4 MG/ML VIAL IM PRN (16:35)
[2023-08-20] MEDS ORDERED: IBUPROFEN 600 MG TABLET (FP) PO PRN (16:35)
[2023-08-20] MEDS ORDERED: METHOCARBAMOL 500 MG TABLET PO PRN (16:35)
[2023-08-20] MEDS ORDERED: LORazepam 2 MG TABLET ONE (17:07)
[2023-08-20] MEDS: LORazepam 2 MG TABLET PO SCH (17:12)
[2023-08-20] MEDS: CEPHALEXIN MONOHYDRATE 500 MG CAPSULE (UD) PO SCH (18:33)
[2023-08-20] MEDS: MELATONIN 5 MG TABLETS PO SCH (23:39)
[2023-08-20] MEDS: THIAMINE 100 MG TABLET PO SCH (23:39)
[2023-08-21] MEDS: methaDONE HCL 10 MG TABLET PO ONE ×2 (10:38→11:52)
[2023-08-21] MEDS: predniSONE 20 MG TABLET (UD) PO SCH (10:38)
[2023-08-21] MEDS: PRENATAL VITAMINS W/ FOLIC ACID TABLET (FP) PO SCH (10:38)
[2023-08-21 12:08] LABS: CHLORIDE 108 mmol/L (98-107); POTASSIUM 4.1 mmol/L (3.5-5.1); SODIUM 141 mmol/L (136-145)
[2023-08-21 12:09] LABS: HEMATOCRIT 29.3 % (35.4-49); MCH 27.6 pg (25.7-33.7); MCHC 33.9 g/dl (32.0-35.9); MEAN CELL VOLUME 81.5 fl (80-96); PLATELET COUNT 158 10^3/uL (134-434); RDW 13.8 % (11.9-15.9)
[2023-08-21 12:10] LABS: CALCIUM 8.9 mg/dL (8.5-10.1)
[2023-08-21 12:11] LABS: ANION GAP 5 mmol/L (4-13); BLOOD UREA NITROGEN 12.6 mg/dL (7-18); CO2 28 mmol/L (21-32); GLUCOSE,RANDOM 98 mg/dL (74-106)
[2023-08-21 12:13] LABS: SGPT/ALT 34 U/L (13-61)
[2023-08-21 12:14] LABS: CREATININE 0.5 mg/dL (0.55-1.3); SGOT/AST 21 U/L (15-37)
[2023-08-21 12:15] LABS: BILIRUBIN,TOTAL 0.2 mg/dL (0.2-1)
[2023-08-21 12:16] LABS: ALK PHOS 86 U/L (45-117); TOT PROT 6.2 g/dl (6.4-8.2)
[2023-08-21] MEDS: methaDONE HCL 10 MG TABLET PO PRN (16:04)
[2023-08-21] MEDS: MIRTAZAPINE 15 MG TABLET (FP) PO SCH (22:34)
[2023-08-21] MEDS: LACTULOSE 20 GM/30 ML UDC (FOR ORAL USE ONLY) PO SCH (22:36)
[2023-08-22] MEDS: LORazepam 1 MG TABLET PO SCH (05:11)
[2023-08-22] MEDS ORDERED: methaDONE HCL 40 MG DISPERSABLE TABLET PO SCH (09:00)
[2023-08-22] MEDS: VENLAFAXINE HCL 150 MG E.R. CAPSULE PO SCH (10:32)
[2023-08-22 15:46] LABS: HIV INTERPRETATION NEGATIVE (NEGATIVE)
[2023-08-23] MEDS ORDERED: LORazepam 0.5 MG TABLET PO PRN
[2023-08-23] MEDS: LORazepam 0.5 MG TABLET PO SCH (05:08)
[2023-08-23] MEDS: hydrOXYzine PAMOATE 25 MG CAPSULE (FP) PO PRN (07:10)
[2023-08-24 05:58] VITALS: RESP 18; TEMP 97.8
[2023-08-24] MEDS: LORazepam 0.5 MG TABLET PO ONE (06:25)
[2023-08-24 08:42] VITALS: BP 130/77; PULSE 111
== END 2023-08-24 12:42 | disposition other institution (70) | DRG 773 ==
LOC: YASAS 12:51 → Y6N 17:04
PROVIDERS: ADMIT Allergy & Immunology; ATTEND Surgery
PROC: HZ2ZZZZ Detoxification Services for Substance Abuse Treatment (ICD-10-PCS; principal; 2023-08-20)
DX: F10.230 Alcohol dependence with withdrawal, uncomplicated (principal); F11.20 Opioid dependence, uncomplicated; F14.20 Cocaine dependence, uncomplicated; F12.20 Cannabis dependence, uncomplicated; F17.210 Nicotine dependence, cigarettes, uncomplicated; F32.9 Major depressive disorder, single episode, unspecified; L95.8 Other vasculitis limited to the skin; L03.116 Cellulitis of left lower limb; R79.89 Other specified abnormal findings of blood chemistry; Z88.0 Allergy status to penicillin
CPT/HCPCS: 36415; 80053; 80305; 80307; 82140; 85027; 86780; 86803; 87389; 87811; 93005; 93010

== ENCOUNTER 2023-08-24 13:01 | Inpatient (IN) | payer OTHER ==
[2023-08-24] MEDS ORDERED: NALOXONE HCL 0.4 MG/ML VIAL IVPUSH PRN (13:36)
[2023-08-24] MEDS ORDERED: BENZOCAINE/MENTHOL (CHLORASEPTIC ) LOZENGE MM PRN (13:36)
[2023-08-24] MEDS ORDERED: hydrOXYzine PAMOATE 25 MG CAPSULE (FP) PO PRN (13:36)
[2023-08-24] MEDS ORDERED: BENZONATATE 200 MG CAPSULE PO PRN (13:36)
[2023-08-24] MEDS ORDERED: guaiFENesin 600 MG TABLET.ER (FP) PO PRN (13:36)
[2023-08-24] MEDS ORDERED: METHOCARBAMOL 500 MG TABLET PO PRN (13:36)
[2023-08-24] MEDS ORDERED: MAGNESIUM HYDROX 2400MG/30ML ORAL SUSPENSION 30 ML CUP PO PRN (13:36)
[2023-08-24] MEDS ORDERED: NALOXONE (NARCAN) HCL 4 MG/0.1 ML SPRAY NS PRN (13:36)
[2023-08-24] MEDS ORDERED: POLYETHYLENE GLYCOL (HEALTHYLAX) 3350 17 GM PACKET PO PRN (13:36)
[2023-08-24] MEDS ORDERED: LOPERAMIDE HCL 2 MG CAPSULE PO PRN (13:36)
[2023-08-24] MEDS: CEPHALEXIN MONOHYDRATE 500 MG CAPSULE (UD) PO SCH (17:56)
[2023-08-24] MEDS: THIAMINE 100 MG TABLET PO SCH (21:40)
[2023-08-24] MEDS: MIRTAZAPINE 15 MG TABLET (FP) PO SCH (21:40)
[2023-08-24] MEDS: MELATONIN 5 MG TABLETS PO SCH (21:40)
[2023-08-25] MEDS ORDERED: methaDONE HCL 10 MG TABLET PO SCH (06:00)
[2023-08-25] MEDS: PRENATAL VITAMINS W/ FOLIC ACID TABLET (FP) PO SCH (10:00)
[2023-08-25] MEDS: VENLAFAXINE HCL 150 MG E.R. CAPSULE PO SCH (10:46)
[2023-08-29] MEDS: CLINDAMYCIN PHOSPHATE 1% TOPICAL GEL 30 GM TUBE TP SCH (21:00)
[2023-08-31] MEDS ORDERED: methaDONE HCL 40 MG DISPERSABLE TABLET PO SCH (06:00)
[2023-09-02] MEDS: FAMOTIDINE 10 MG TABLET PO SCH (16:00)
[2023-09-02] MEDS: LORATADINE 10 MG TABLET PO PRN (16:02)
[2023-09-02] MEDS: IBUPROFEN 600 MG TABLET (FP) PO PRN (18:14)
[2023-09-04] MEDS: IBUPROFEN 400 MG TABLET (FP) PO PRN (00:23)
[2023-09-04] MEDS: MAG HYDROX/AL HYDROX/SIMETH 30 ML UNIT-DOSE CUP PO PRN (02:25)
[2023-09-04] MEDS: OXYMETAZOLINE 0.05% NASAL SOLUTION 15 ML BOTTLE NS PRN (21:26)
[2023-09-05] MEDS: ACETAMINOPHEN 325 MG TABLET (FP) PO PRN (06:35)
[2023-09-05 07:10] VITALS: BP 112/75; PULSE 81; RESP 17; TEMP 97.2
== END 2023-09-05 14:44 | disposition home or self-care (01) | DRG 772 ==
LOC: YASAS 13:01 → Y5N 13:02 → Y3E 08-26 10:53
PROVIDERS: ADMIT Allergy & Immunology; ATTEND Psychiatry & Neurology Pain Medicine
PROC: HZ42ZZZ Group Counseling for Substance Abuse Treatment, Cognitive-Behavioral (ICD-10-PCS; principal; 2023-08-24)
DX: F10.20 Alcohol dependence, uncomplicated (principal); F11.20 Opioid dependence, uncomplicated; F13.20 Sedative, hypnotic or anxiolytic dependence, uncomplicated; F14.20 Cocaine dependence, uncomplicated; F17.210 Nicotine dependence, cigarettes, uncomplicated; F32.A Depression, unspecified; F39 Unspecified mood [affective] disorder; J45.909 Unspecified asthma, uncomplicated; K21.9 Gastro-esophageal reflux disease without esophagitis; J30.2 Other seasonal allergic rhinitis; L03.115 Cellulitis of right lower limb; L03.116 Cellulitis of left lower limb; L70.8 Other acne; R79.89 Other specified abnormal findings of blood chemistry; Z88.0 Allergy status to penicillin
CPT/HCPCS: 0241U-QW; 36415; 86803

== ENCOUNTER 2023-11-03 12:37 | Inpatient (IN) | payer OTHER ==
[2023-11-03 13:24] VITALS: BMI 24.6
[2023-11-03] MEDS ORDERED: NALOXONE (NARCAN) HCL 4 MG/0.1 ML SPRAY NS PRN (16:24)
[2023-11-03] MEDS ORDERED: NALOXONE HCL 0.4 MG/ML VIAL IM PRN (16:24)
[2023-11-03] MEDS ORDERED: POLYETHYLENE GLYCOL (HEALTHYLAX) 3350 17 GM PACKET PO PRN (16:24)
[2023-11-03] MEDS ORDERED: DOCUSATE SODIUM 100 MG CAPSULE (FP) PO PRN (16:24)
[2023-11-03] MEDS ORDERED: IBUPROFEN 400 MG TABLET (FP) PO PRN (16:24)
[2023-11-03] MEDS ORDERED: guaiFENesin 600 MG TABLET.ER (FP) PO PRN (16:24)
[2023-11-03] MEDS ORDERED: NICOTINE POLACRILEX 2 MG LOZENGE BC PRN (16:24)
[2023-11-03] MEDS ORDERED: BISACODYL 5 MG TABLET.DR (FP) PO PRN (16:24)
[2023-11-03] MEDS ORDERED: MAGNESIUM HYDROX 2400MG/30ML ORAL SUSPENSION 30 ML CUP PO PRN (16:24)
[2023-11-03] MEDS ORDERED: BENZONATATE 200 MG CAPSULE PO PRN (16:24)
[2023-11-03] MEDS ORDERED: NICOTINE POLACRILEX 2 MG GUM BUC PRN (16:24)
[2023-11-03] MEDS ORDERED: LOPERAMIDE HCL 2 MG CAPSULE PO PRN (16:24)
[2023-11-03] MEDS ORDERED: P-EPHED 60MG/TRIPROLIDI 2.5MG TABLET PO PRN (16:24)
[2023-11-03] MEDS ORDERED: BENZOCAINE/MENTHOL (CHLORASEPTIC ) LOZENGE MM PRN (16:24)
[2023-11-03] MEDS: MELATONIN 5 MG TABLETS PO SCH (22:34)
[2023-11-03] MEDS: THIAMINE 100 MG TABLET PO SCH (22:34)
[2023-11-03 22:55] LABS: PH,URINE 6.5 (5.0-8.0); URINE APPEARANCE CLEAR; URINE BILIRUBIN NEGATIVE (NEGATIVE); URINE COLOR YELLOW; URINE GLUCOSE (UA) NEGATIVE (NEGATIVE); URINE KETONE NEGATIVE (NEGATIVE); URINE LEUK ESTERASE NEGATIVE (NEGATIVE); URINE NITRITE NEGATIVE (NEGATIVE); URINE PROTEIN NEGATIVE (NEGATIVE); URINE UROBILINOGEN 0.2 mg/dL (0.2-1.0)
[2023-11-04] MEDS: methaDONE HCL 40 MG DISPERSABLE TABLET PO SCH (09:57)
[2023-11-04] MEDS: PRENATAL VITAMINS W/ FOLIC ACID TABLET (FP) PO SCH (09:57)
[2023-11-04] MEDS: VENLAFAXINE HCL 150 MG E.R. CAPSULE PO SCH (11:57)
[2023-11-04 12:48] LABS: HEMATOCRIT 34.6 % (35.4-49); HEMOGLOBIN 11.7 GM/dL (11.7-16.9); MCH 27.1 pg (25.7-33.7); MCHC 33.8 g/dl (32.0-35.9); MEAN CELL VOLUME 80.2 fl (80-96); MEAN PLT VOLUME 8.9 fl (7.5-11.1); PLATELET COUNT 220 10^3/uL (134-434); RBC 4.31 M/mm3 (4.00-5.60); RDW 14.1 % (11.9-15.9); WHITE BLOOD COUNT 8.7 K/mm3 (4.0-10.0)
[2023-11-04 12:59] LABS: CHLORIDE 107 mmol/L (98-107); POTASSIUM 4.4 mmol/L (3.5-5.1); SODIUM 141 mmol/L (136-145)
[2023-11-04 13:15] LABS: ALBUMIN 3.3 g/dl (3.4-5.0); BLOOD UREA NITROGEN 13.1 mg/dL (7-18); GLUCOSE,RANDOM 104 mg/dL (74-106)
[2023-11-04 13:16] LABS: ANION GAP 5 mmol/L (4-13); CALCIUM 9.3 mg/dL (8.5-10.1); CO2 28 mmol/L (21-32)
[2023-11-04 13:18] LABS: SGOT/AST 21 U/L (15-37); SGPT/ALT 35 U/L (13-61)
[2023-11-04 13:20] LABS: BILIRUBIN,TOTAL 0.2 mg/dL (0.2-1); CREATININE 0.6 mg/dL (0.55-1.3); TOT PROT 6.2 g/dl (6.4-8.2)
[2023-11-04 13:23] LABS: ALK PHOS 136 U/L (45-117)
[2023-11-04 13:52] LABS: HIV INTERPRETATION NEGATIVE (NEGATIVE)
[2023-11-04] MEDS: traZODone HCL 100 MG TABLET (FP) PO SCH (21:24)
[2023-11-04] MEDS: clonazePAM 1 MG ODT TABLETS SL SCH (21:24)
[2023-11-09 17:19] LABS: BASO % 0.5 % (0-2.0); EOS % 2.2 % (0-4.5); HEMOGLOBIN 10.8 GM/dL (11.7-16.9); LYMPH % 29.2 % (8-40); MCH 26.9 pg (25.7-33.7); MCHC 33.9 g/dl (32.0-35.9); MEAN CELL VOLUME 79.5 fl (80-96); MEAN PLT VOLUME 8.5 fl (7.5-11.1); MONO % 5.9 % (3.8-10.2); NEUT % 62.2 % (42.8-82.8); PLATELET COUNT 202 10^3/uL (134-434); RBC 4.03 M/mm3 (4.00-5.60); RDW 14.3 % (11.9-15.9); WHITE BLOOD COUNT 7.6 K/mm3 (4.0-10.0)
[2023-11-10] MEDS: clonazePAM 1 MG ODT TABLETS SL SCH (10:21)
[2023-11-10] MEDS: FERROUS SO4 325 MG TABLET (FP) PO SCH (14:36)
[2023-11-12] MEDS: methaDONE HCL 40 MG DISPERSABLE TABLET PO SCH (05:59)
[2023-11-13] MEDS: IBUPROFEN 600 MG TABLET (FP) PO PRN (17:37)
[2023-11-16] MEDS: ACETAMINOPHEN 325 MG TABLET (FP) PO PRN (18:26)
[2023-11-19] MEDS: methaDONE HCL 40 MG DISPERSABLE TABLET PO SCH (06:49)
[2023-11-19] MEDS: clonazePAM 0.5 MG ODT TABLETS SL SCH (10:02)
[2023-11-22] MEDS: clonazePAM 0.25 MG ODT TABLETS SL SCH (09:48)
[2023-11-24] MEDS: HEPATITIS A VIRUS VACCINE/PF 1440 UNIT/1 ML IM ONE (15:35)
[2023-11-25] MEDS: MAG HYDROX/AL HYDROX/SIMETH 30 ML UNIT-DOSE CUP PO PRN (14:28)
[2023-11-26] MEDS: HYDROCORTISONE 0.5% TOPICAL CREAM 30 GM TUBE TP PRN (09:54)
[2023-11-29 10:17] VITALS: RESP 18
[2023-11-30 06:38] VITALS: BP 122/70; PULSE 70; TEMP 97.7
== END 2023-11-30 09:26 | disposition home or self-care (01) | DRG 772 ==
LOC: YASAS 12:37 → Y3NR 17:52 → Y3W 11-04 12:11
PROVIDERS: ADMIT Psychiatry & Neurology Pain Medicine; ATTEND Psychiatry & Neurology Pain Medicine
PROC: HZ42ZZZ Group Counseling for Substance Abuse Treatment, Cognitive-Behavioral (ICD-10-PCS; principal; 2023-11-03)
DX: F14.20 Cocaine dependence, uncomplicated (principal); F11.20 Opioid dependence, uncomplicated; F17.210 Nicotine dependence, cigarettes, uncomplicated; F41.9 Anxiety disorder, unspecified; F32.A Depression, unspecified; D64.9 Anemia, unspecified; G47.00 Insomnia, unspecified; J45.20 Mild intermittent asthma, uncomplicated; Z88.0 Allergy status to penicillin
CPT/HCPCS: 36415; 80053; 80305; 80307; 81003; 85025; 85027; 87389; 87811; 90632; 93005; 93010

== ENCOUNTER 2024-06-04 12:28 | Inpatient (IN) | payer OTHER ==
[2024-06-04 12:49] VITALS: BMI 24.6
[2024-06-04] MEDS ORDERED: ACETAMINOPHEN 325 MG TABLET (FP) PO PRN (14:04)
[2024-06-04] MEDS ORDERED: BENZOCAINE/MENTHOL (CHLORASEPTIC ) LOZENGE MM PRN (14:04)
[2024-06-04] MEDS ORDERED: hydrOXYzine PAMOATE 25 MG CAPSULE (FP) PO PRN (14:04)
[2024-06-04] MEDS ORDERED: guaiFENesin 600 MG TABLET.ER (FP) PO PRN (14:04)
[2024-06-04] MEDS ORDERED: LOPERAMIDE HCL 2 MG CAPSULE PO PRN (14:04)
[2024-06-04] MEDS ORDERED: NALOXONE (NARCAN) HCL 4 MG/0.1 ML SPRAY NS PRN (14:04)
[2024-06-04] MEDS ORDERED: POLYETHYLENE GLYCOL (HEALTHYLAX) 3350 17 GM PACKET PO PRN (14:04)
[2024-06-04] MEDS ORDERED: BENZONATATE 200 MG CAPSULE PO PRN (14:04)
[2024-06-04] MEDS ORDERED: MAGNESIUM HYDROX 2400MG/30ML ORAL SUSPENSION 30 ML CUP PO PRN (14:04)
[2024-06-04] MEDS ORDERED: IBUPROFEN 400 MG TABLET (FP) PO PRN (14:04)
[2024-06-04] MEDS ORDERED: IBUPROFEN 600 MG TABLET (FP) PO PRN (14:04)
[2024-06-04] MEDS ORDERED: ALBUTEROL SO4 HFA INHALER IH PRN (14:06)
[2024-06-04] MEDS: THIAMINE 100 MG TABLET PO SCH (22:29)
[2024-06-04] MEDS: MIRTAZAPINE 15 MG TABLET (FP) PO SCH (22:29)
[2024-06-04] MEDS: MELATONIN 5 MG TABLETS PO SCH (22:29)
[2024-06-05] MEDS: VENLAFAXINE HCL 75 MG E.R. CAPSULES PO SCH (10:00)
[2024-06-05] MEDS: PRENATAL VITAMINS W/ FOLIC ACID TABLET (FP) PO SCH (10:00)
[2024-06-05 11:43] LABS: HEMATOCRIT 36.7 % (40.1-51.0); HEMOGLOBIN 11.7 g/dL (13.7-17.5); MCHC 31.9 g/dl (32.3-36.5); MEAN CELL VOLUME 84.2 fl (79.0-92.2); MEAN PLT VOLUME 10.9 fl (9.4-12.4); PLATELET COUNT 185 x10^3/uL (163-337); RDW 12.2 % (12.0-15.6)
[2024-06-05 11:45] LABS: CHLORIDE 103 mmol/L (98-107); POTASSIUM 4.3 mmol/L (3.5-5.1); SODIUM 138 mmol/L (136-145)
[2024-06-05 11:46] LABS: CALCIUM 9.6 mg/dL (8.5-10.1)
[2024-06-05 11:47] LABS: ALBUMIN 3.9 g/dl (3.4-5.0); ANION GAP 7 mmol/L (4-13); BLOOD UREA NITROGEN 15.4 mg/dL (7-18); CO2 28 mmol/L (21-32); GLUCOSE,RANDOM 107 mg/dL (74-106)
[2024-06-05 11:50] LABS: CREATININE 0.7 mg/dL (0.55-1.3); SGOT/AST 14 U/L (15-37); SGPT/ALT 21 U/L (13-61)
[2024-06-05 11:52] LABS: BILIRUBIN,TOTAL 0.3 mg/dL (0.2-1); TOT PROT 7.1 g/dl (6.4-8.2)
[2024-06-05 11:53] LABS: ALK PHOS 117 U/L (45-117)
[2024-06-05 13:07] LABS: SYPHILIS W/ RPR CONF NON-REACTIVE (NONREACTIVE)
[2024-06-05] MEDS ORDERED: methaDONE HCL 10 MG TABLET PO SCH (13:15)
[2024-06-05 13:38] LABS: HCV DIAGNOSTIC IN-HOUSE W/RFLX NON-REACTIVE (NONREACTIVE)
[2024-06-06 14:51] LABS: PH,URINE 5.5 (5.0-8.0); URINE APPEARANCE CLEAR; URINE BILIRUBIN NEGATIVE (NEGATIVE); URINE COLOR YELLOW; URINE GLUCOSE (UA) NEGATIVE (NEGATIVE); URINE KETONE NEGATIVE (NEGATIVE); URINE LEUK ESTERASE NEGATIVE (NEGATIVE); URINE NITRITE NEGATIVE (NEGATIVE); URINE PROTEIN NEGATIVE (NEGATIVE); URINE UROBILINOGEN 0.2 mg/dL (0.2-1.0)
[2024-06-07] MEDS: NICOTINE POLACRILEX 2 MG GUM BUC PRN (10:15)
[2024-06-10] MEDS: MAG HYDROX/AL HYDROX/SIMETH 30 ML UNIT-DOSE CUP PO PRN (15:15)
[2024-06-14 06:47] VITALS: BP 109/65; PULSE 68; RESP 16; TEMP 97.7
== END 2024-06-14 13:04 | disposition home or self-care (01) | DRG 772 ==
LOC: YASAS 12:28 → Y3NR 15:07 → Y3E 06-05 10:14
PROVIDERS: ADMIT Psychiatry & Neurology Pain Medicine; ATTEND Psychiatry & Neurology Pain Medicine
PROC: HZ42ZZZ Group Counseling for Substance Abuse Treatment, Cognitive-Behavioral (ICD-10-PCS; principal; 2024-06-04)
DX: F14.20 Cocaine dependence, uncomplicated (principal); F11.20 Opioid dependence, uncomplicated; F17.210 Nicotine dependence, cigarettes, uncomplicated; F19.24 Other psychoactive substance dependence with psychoactive substance-induced mood disorder; F32.A Depression, unspecified; F41.9 Anxiety disorder, unspecified; J45.20 Mild intermittent asthma, uncomplicated; Z91.148 Patient's other noncompliance with medication regimen for other reason; Z88.0 Allergy status to penicillin
CPT/HCPCS: 36415; 80053; 80305; 80307; 81003; 85027; 86780; 86803; 87811; 93005; 93010